=== PATIENT | male | born 1955 | race Caucasian/White ===

== ENCOUNTER 2024-10-02 08:47 | Observation (INO) | payer MEDICARE, SELFPAY ==
[2024-10-02] VITALS (10 sets, daily range): BP systolic 107–176; BP diastolic 57–103; PULSE 39–61; RESP 12–18; TEMP 36.4–37; O2SAT 95–98; BMI 25.0; BMI 25.7
--- OUTSIDE RECORDS SUMMARY | 2024-10-02 07:40 | XMS_ITS | Encounter Summary ---
Author Organization [facility] Address [address] [place] [address] Care Team Providers Care Credit Collections Manager Name Role Phone Sadiq Ribera DO Primary Care Provider [phone] Reason for Visit * Reason Comments Chest Pain (Angina) Encounter Details Date Type Department Care Team (Latest Contact Info) Description 10/02/2024 7:40 AM CDT Office Visit [address] [phone] Sadiq Ribera DO [address] [place] [phone] Precordial pain (Primary Dx); Mixed hyperlipidemia Social History Tobacco Use Types Packs/Day Years Used Date Smoking Tobacco: Never Smokeless Tobacco: Never Alcohol Use Standard Drinks/Week Comments Yes 1 (1 standard drink = 0.6 oz pur e alcohol) daily Sex and Gender Information Value Date Recorded Sex Assigned at Not on file 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 Gender Identity Not on file Sexual Orientation Not on file documented as of this encounter Last Filed Vital Signs Vital Sign Reading Time Taken Comments Blood Pressure 130/90 10/02/2024 7:48 AM CDT Pulse 69 10/02/2024 7:40 AM CDT Temperature 36.5 C (97.7 F) 10/02/2024 7:40 AM CDT Respiratory Rate 20 10/02/2024 7:40 AM CDT Oxygen Saturation 97% 10/02/2024 7:40 AM CDT Inhaled Oxygen Concentration - - Weight 78.9 kg (174 lb) 10/02/2024 7:40 AM CDT Height 170.2 cm (5' 7 ) 10/02/2024 7:40 AM CDT Body Mass Index 27.25 10/02/2024 7:40 AM CDT documented in this encounter Progress Notes * Sadiq Ribera DO - 10/02/2024 7:46 AM CDTAssociated Order(s): EKG 12-LEAD Pre-Procedure Diagnose(s): Precordial pain Post-Procedure Diagnose(s): Precordial pain Chief Complaint Patient presents with Chest Pain (Angina) SUBJECTIVE: History of Present Illness Onset of chest pain yesterday shortly after breakfast, persistent through the day yesterday and again this morning worsening after breakfast. Pain is described as substernal, denies being worse with activity. Denies history of GERD or indigestion. Denies recent sick contact. On arrival to the office he does have elevated blood pressure without history of hypertension Review of Systems Constitutional: Negative for chills, diaphoresis, fever and malaise/fatigue. HENT: Negative for congestion, sinus pain and sore throat. Eyes: Negative for blurred vision, pain and redness. Respiratory: Negative for cough, shortness of breath and wheezing. Cardiovascular: Positive for chest pain. Negative for palpitations and orthopnea. Gastrointestinal: Negative for abdominal pain, heartburn, nausea and vomiting. Genitourinary: Negative for dysuria. Musculoskeletal: Negative for joint pain and myalgias. Skin: Negative for itching and rash. Neurological: Negative for dizziness, weakness and headaches. Psychiatric/Behavioral: Negative for depression. The patient is not nervous/anxious and does not have insomnia. Wt Readings from Last 5 Encounters: 10/02/24 78.9 kg (174 lb) 06/04/24 78.9 kg (174 lb) 04/24/24 78.2 kg (172 lb 6.4 oz) 04/08/24 77.3 kg (170 lb 6.4 oz) 03/06/24 75.4 kg (166 lb 3.2 oz) Ht Readings from Last 1 Encounters: 10/02/24 5' 7 (1.702 m) BMI Readings from Last 5 Encounters: 10/02/24 27.25 kg/m?? 06/04/24 27.25 kg/m?? 04/24/24 27.00 kg/m?? 04/08/24 26.69 kg/m?? 03/06/24 26.03 kg/m?? Current Outpatient Medications on File Prior to Visit Medication Sig Dispense Refill adalimumab (Humira,CF, Pen) 40 mg/0.4 mL Pen Injector Kit Inject 0.4 mL by subcutaneous injection every 2 weeks. No current facility-administered medications on file prior to visit. PAST MEDICAL/SURGICAL HISTORY: Past Medical History: Diagnosis Date Anxiety Arthritis Back pain Cancer (CMS/HCC) Headache Hyperlipidemia IBS (irritable bowel syndrome) Prostate CA (CMS/HCC) Travel advice encounter 12/17/2020 Past Surgical History: Procedure Laterality Date HX APPENDECTOMY HX PROSTATECTOMY HX WRIST FUSION Right 1999 [place] COLONOSCOPY FLX DX W/COLLJ SPEC WHEN PFRMD N/A 08/02/2020 COLONOSCOPY performed by Chetan Gavin DO at [facility] NOEMI XR WRIST Right 1996 Social History Socioeconomic History Marital status: Tobacco Use Smoking status: Never Smokeless tobacco: Never Vaping Use Vaping status: Never Used Substance and Sexual Activity Alcohol use: Yes Alcohol/week: 1.0 standard drink of alcohol Types: 1 Shots of liquor per week Comment: daily Drug use: Never Sexual activity: Not Currently OBJECTIVE: PHYSICAL EXAM: BP (!) 194/100 (BP Location: Right arm, Patient Position (BP): Sitting, BP Cuff Size: Adult) Pulse 69 Temp 97.7 ??F (36.5 ??C) (Temporal) Resp 20 Ht 5' 7 (1.702 m) Wt 78.9 kg (174 lb) SpO2 97% BMI 27.25 kg/m?? Physical Exam Vitals and nursing note reviewed. Constitutional: General: He is not in acute distress. Appearance: Normal appearance. He is normal weight. He is not ill-appearing, toxic-appearing or diaphoretic. HENT: Head: Normocephalic and atraumatic. Right Ear: External ear normal. Left Ear: External ear normal. Nose: Nose normal. No rhinorrhea. Mouth/Throat: Mouth: Mucous membranes are moist. Eyes: General: No scleral icterus. Extraocular Movements: Extraocular movements intact. Conjunctiva/sclera: Conjunctivae normal. Cardiovascular: Rate and Rhythm: Normal rate and regular rhythm. Pulses: Normal pulses. Heart sounds: Normal heart sounds. No friction rub. No gallop. Pulmonary: Effort: Pulmonary effort is normal. Breath sounds: No stridor. No wheezing. Abdominal: General: Abdomen is flat. Musculoskeletal: General: No deformity or signs of injury. Normal range of motion. Cervical back: Normal range of motion and neck supple. Right lower leg: No edema. Left lower leg: No edema. Lymphadenopathy: Cervical: No cervical adenopathy. Skin: General: Skin is warm and dry. Capillary Refill: Capillary refill takes less than 2 seconds. Findings: No bruising or erythema. Neurological: General: No focal deficit present. Mental Status: He is alert and oriented to person, place, and time. Gait: Gait normal. Psychiatric: Attention and Perception: Attention normal. Mood and Affect: Mood is anxious. Behavior: Behavior normal. EKG 12-LEAD Date/Time: 10/02/2024 7:40 AM Performed by: Sadiq Ribera DO Authorized by: Sadiq Ribera DO Interpreted by ED physician Comparison: not compared with previous ECG Previous ECG: no previous ECG available Rhythm: sinus rhythm BPM: 63 QRS axis: normal Conduction: conduction normal ST Segments: ST segments normal T Waves: T waves normal Other findings: LVH Clinical impression: normal ECG RESULTS: Results ASSESSMENT/PLAN: ICD-10-CM ICD-9-CM 1. Precordial pain R07.2 786.51 EKG 12-LEAD 2. Mixed hyperlipidemia E78.2 272.2 Assessment & Plan Reviewed ongoing chest pain even with normal EKG is reason to proceed to the emergency room for further evaluation with troponin. Discussed that in the office we cannot draw a troponin in a timely fashion to provide direction of treatment. Discussed pathophysiology of ACS, he does have history of hy perlipidemia uncontrolled. Discussed that even if we corrected cholesterol tomorrow, the long-term benefit would not be for months to years. He is agreeable to transport for further evaluation. Discussed closest available facility with interventional cardiology is [facility] in [place], [place]. Patient did proceed by private vehicle, refused transport by EMS TOBACCO/NICOTINE COUNSELING He is not a tobacco/nicotine user. The author of this note, patient (or authorized practice representative), and all other persons present consent to the audio recording of this visit for charting documentation purposes. This note was automatically generated by a Wetive AI technology (eyefactive), reviewed, edited, and finalized by Sadiq Ribera DO. Sadiq Ribera DO Portions of this note were created using GoGoPin Dictation software. Attempts were made to correct any mistakes prior to signing this note. There is always a possibility that words were not transcribed correctly. This note is made as a medical record and medical terms have been used where appropriate. If you do not recognize a term or feel it is inaccurate please call the office to discuss or schedule a follow-up appointment. 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 Office Visit [facility] [address] [place] [phone] Sadiq Ribera DO [address] [place] [phone] documented as of this encounter Procedures Procedure Name Priority Date/Time Associated Diagnosis Comments [place] ECG ROUTINE ECG W/LEAST 12 LDS W/I&R Routine 10/02/2024 7:40 AM CDT Precordial pain documented in this encounter Results * [place] ECG ROUTINE ECG W/LEAST 12 LDS W/I&R (10/02/2024 7:40 AM CDT) Narrative [facility] - 10/02/2024 7:40 AM CDT Sadiq Ribera DO 10/02/2024 8:04 AM EKG 12-LEAD Date/Time: 10/02/2024 7:40 AM Performed by: Sadiq Ribera DO Authorized by: Sadiq Ribera DO Interpreted by ED physician Comparison: not compared with previous ECG Previous ECG: no previous ECG available Rhythm: sinus rhythm BPM: 63 QRS axis: normal Conduction: conduction normal ST Segments: ST segments normal T Waves: T waves normal Other findings: LVH Clinical impression: normal ECG Procedure Note Sadiq Ribera DO - 10/02/2024 7:46 AM CDT Chief Complaint Patient presents with Chest Pain (Angina) SUBJECTIVE: History of Present Illness Onset of chest pain yesterday shortly after breakfast, persistent throughthe day yesterday and again this morning worsening after breakfast. Painis described as substernal, denies being worse with activity. Denieshistory of GERD or indigestion. Denies recent sick contact. On arrival to the office he does have elevated blood pressure withouthistory of hypertension Review of Systems Constitutional: Negative for chills, diaphoresis, fever andmalaise/fatigue. HENT: Negative for congestion, sinus pain and sore throat. Eyes: Negative for blurred vision, pain and redness. Respiratory: Negative for cough, shortness of breath and wheezing. Cardiovascular: Positive for chest pain. Negative for palpitations andorthopnea. Gastrointestinal: Negative for abdominal pain, heartburn, nausea andvomiting. Genitourinary: Negative for dysuria. Musculoskeletal: Negative for joint pain and myalgias. Skin: Negative for itching and rash. Neurological: Negative for dizziness, weakness and headaches. Psychiatric/Behavioral: Negative for depression. The patient is notnervous/anxious and does not have insomnia. Wt Readings from Last 5 Encounters: 10/02/24 78.9 kg (174 lb) 06/04/24 78.9 kg (174 lb) 04/24/24 78.2 kg (172 lb 6.4 oz) 04/08/24 77.3 kg (170 lb 6.4 oz) 03/06/24 75.4 kg (166 lb 3.2 oz) Ht Readings from Last 1 Encounters: 10/02/24 5' 7 (1.702 m) BMI Readings from Last 5 Encounters: 10/02/24 27.25 kg/m 06/04/24 27.25 kg/m 04/24/24 27.00 kg/m 04/08/24 26.69 kg/m 03/06/24 26.03 kg/m Current Outpatient Medications on File Prior to Visit Medication Sig Dispense Refill adalimumab (Humira,CF, Pen) 40 mg/0.4 mL Pen Injector Kit Inject 0.4 mLby subcutaneous injection every 2 weeks. No current facility-administered medications on file prior to visit. PAST MEDICAL/SURGICAL HISTORY: Past Medical History: Diagnosis Date Anxiety Arthritis Back pain Cancer (CMS/HCC) Headache Hyperlipidemia IBS (irritable bowel syndrome) Prostate CA (CMS/HCC) Travel advice encounter 12/17/2020 Past Surgical History: Procedure Laterality Date HX APPENDECTOMY HX PROSTATECTOMY HX WRIST FUSION Right 1999 [place] COLONOSCOPY FLX DX W/COLLJ SPEC WHEN PFRMD N/A 08/02/2020 [facility] W[facility] Right 1996 Social History Socioeconomic History Marital status: Tobacco Use Smoking status: Never Smokeless tobacco: Never Vaping Use Vaping status: Never Used Substance and Sexual Activity Alcohol use: Yes Alcohol/week: 1.0 standard drink of alcohol Types: 1 Shots of liquor per week Comment: daily Drug use: Never Sexual activity: Not Currently OBJECTIVE: PHYSICAL EXAM: BP (!) 194/100 (BP Location: Right arm, Patient Position (BP): Sitting, BPCuff Size: Adult) Pulse 69 Temp 97.7 F (36.5 C) (Temporal) Resp20 Ht 5' 7 (1.702 m) Wt 78.9 kg (174 lb) SpO2 97% BMI 27.25kg/m Physical Exam Vitals and nursing note reviewed. Constitutional: General: He is not in acute distress. Appearance: Normal appearance. He is normal weight. He is notill-appearing, toxic-appearing or diaphoretic. HENT: Head: Normocephalic and atraumatic. Right Ear: External ear normal. Left Ear: External ear normal. Nose: Nose normal. No rhinorrhea. Mouth/Throat: Mouth: Mucous membranes are moist. Eyes: General: No scleral icterus. Extraocular Movements: Extraocular movements intact. Conjunctiva/sclera: Conjunctivae normal. Cardiovascular: Rate and Rhythm: Normal rate and regular rhythm. Pulses: Normal pulses. Heart sounds: Normal heart sounds. No friction rub. No gallop. Pulmonary: Effort: Pulmonary effort is normal. Breath sounds: No stridor. No wheezing. Abdominal: General: Abdomen is flat. Musculoskeletal: General: No deformity or signs of injury. Normal range of motion. Cervical back: Normal range of motion and neck supple. Right lower leg: No edema. Left lower leg: No edema. Lymphadenopathy: Cervical: No cervical adenopathy. Skin: General: Skin is warm and dry. Capillary Refill: Capillary refill takes less than 2 seconds. Findings: No bruising or erythema. Neurological: General: No focal deficit present. Mental Status: He is alert and oriented to person, place, and time. Gait: Gait normal. Psychiatric: Attention and Perception: Attention normal. Mood and Affect: Mood is anxious. Behavior: Behavior normal. EKG 12-LEAD Date/Time: 10/02/2024 7:40 AM Performed by: Sadiq Ribera DO Authorized by: Sadiq Ribera DO Interpreted by ED physician Comparison: not compared with previous ECG Previous ECG: no previous ECG available Rhythm: sinus rhythm BPM: 63 QRS axis: normal Conduction: conduction normal ST Segments: ST segments normal T Waves: T waves normal Other findings: LVH Clinical impression: normal ECG RESULTS: Results ASSESSMENT/PLAN: ICD-10-CM ICD-9-CM 1. Precordial pain R07.2 786.51 EKG 12-LEAD 2. Mixed hyperlipidemia E78.2 272.2 Assessment & Plan Reviewed ongoing chest pain even with normal EKG is reason to proceed tothe emergency room for further evaluation with troponin. Discussed thatin the office we cannot draw a troponin in a timely fashion to providedirection of treatment. Discussed pathophysiology of ACS, he does havehistory of hyperlipidemia uncontrolled. Discussed that even if wecorrected cholesterol tomorrow, the long-term benefit would not be formonths to years. He is agreeable to transport for further evaluation. Discussed closestavailable [facility] [place] [facility] [place] Patient did proceed by private vehicle, refusedtransport by EMS TOBACCO/NICOTINE COUNSELING He is not a tobacco/nicotine user. The author of this note, patient (or authorized practice representative), and allother persons present consent to the audio recording of this visit forcharting documentation purposes. This note was automatically generated by a Generative AI technology(eyefactive), reviewed, edited, and finalized by DO Zaid. Sadiq Ribera DO Portions of this note were created using GoGoPin Dictation software.Attempts were made to correct any mistakes prior to signing this note.There is always a possibility that words were not transcribed correctly.This note is made as a medical record and medical terms have been usedwhere appropriate. If you do not recognize a term or feel it isinaccurate please call the office to discuss or schedule a follow- upappointment. us Sadiq Ribera DO ECG ORDERABLES Final Result [facility]# [id number] [address] [address] documented in this encounter Visit Diagnoses Diagnosis Precordial pain- Primary Mixed hyperlipidemia documented in this encounter Care Teams Credit Collections Manager Relationship Specialty Start Date End Date Sadiq Ribera DO [address] [address] PCP - General Family Practice 03/05/24 documented as of this encounter
--- OUTSIDE RECORDS SUMMARY | 2024-10-02 07:40 | XMS_ITS | Encounter Summary ---
Author Organization [facility] Address [address] [place] [address] Care Team Providers Care Phlebotomy Lab Assistant Name Role Phone Sadiq Ribera DO Primary Care Provider [phone] Reason for Visit * Reason Comments Chest Pain (Angina) Encounter Details Date Type Department Care Team (Latest Contact Info) Description 10/02/2024 7:40 AM CDT Office Visit [address] [phone] Sadiq Ribera DO [address] [place] [phone] Precordial pain (Primary Dx); Mixed hyperlipidemia Social History Tobacco Use Types Packs/Day Years Used Date Smoking Tobacco: Never Smokeless Tobacco: Never Alcohol Use Standard Drinks/Week Comments Yes 1 (1 standard drink = 0.6 oz pur e alcohol) daily Sex and Gender Information Value Date Recorded Sex Assigned at Not on file 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 NOEMI XR WRIST Right 1996 Social [...] closest available facility with interventional cardiology is [facility] in [place], [place]. Patient did proceed by private vehicle, refused transport by EMS TOBACCO/NICOTINE COUNSELING He is not a tobacco/nicotine user. The author of this note, patient (or authorized sales utility representative), and all other persons present consent to the audio recording of this visit for charting documentation purposes. This note was automatically generated by a Zimplistictive AI technology ([employer]), reviewed, edited, and finalized by Sadiq Ribera DO. Sadiq Ribera DO Portions of this note were created using FeZo Dictation software. 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 WRIST Right 1996 Social History [...] Discussed closestavailable [place] [facility] [place]. Patient did proceed by private vehicle, refusedtransport by EMS TOBACCO/NICOTINE COUNSELING He is not a tobacco/nicotine user. The author of this note, patient (or authorized sales utility representative), and allother persons present consent to the audio recording of this visit forcharting documentation purposes. This note was automatically generated by a Generative AI technology([employer]el [employer]), reviewed, edited, and finalized by DO Zaid. Sadiq Ribera DO Portions of this note were created using FeZo Dictation software.Attempts were made to correct any [...] Sadiq Ribera DO ECG ORDERABLES Final Result [facility]# [id number] [address] [address] documented in this encounter Visit Diagnoses Diagnosis Precordial pain- Primary Mixed hyperlipidemia documented in this encounter Care Teams Phlebotomy Lab Assistant Relationship Specialty Start Date End Date Sadiq Ribera DO [address] [phone] PCP - General Family Practice 03/05/24 documented as of this encounter
--- NOTE | 2024-10-02 08:50 | XR_ITS ---
WS: [id number] Exam: XR chest 1V portable [id number] Date/Time of Exam: 10/02/2024 9:01 AM Reason For Exam: chest pain No priors. The lungs are clear and fully inflated. Normal cardiomediastinal silhouette. Bony structures are intact. No pleural effusion. XR/XR chest 1V portable [id number] IMPRESSION: 1. Negative chest.
--- NOTE | 2024-10-02 08:53 | ECG_ITS ---
[facility] 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 Measurements Intervals [place] Rate: 60 P: 37 LA: 149 QRS: -6 QRSD: 80 T: 25 QT: 382 QTc: 382 Interpretive Statements SINUS RHYTHM MINIMAL VOLTAGE CRITERIA FOR LVH, CONSIDER NORMAL VARIANT [MEETS CRITERIA IN ONE OF: R(aVL), S(V1), R(V5), R(V5/V6)+S(V1)] No previous ECG available for comparison Electronically Signed On 10-03-2024 15:23:28 CDT by Peggy Messer M.D. [email or web address]
--- OUTSIDE RECORDS SUMMARY | 2024-10-02 08:56 | XMS_ITS | Clinical Summary ---
Author Organization [facility] Address [address] [address] Care Team Providers Care Marine Steamfitter Name Role Phone Sadiq Ribera DO Primary Care Provider [phone] Allergies Active Allergy Reactions Criticality Noted Date Comments Alpha-Gal (Rewworkqv-Inrbz-8,3-Galactose) Unknown 03/06/2024 Medications adalimumab (Humira,CF, Pen) 40 mg/0.4 mL Pen Injector Kit Inject 0.4 mL by subcutaneous injection every 2 weeks. Active Active Problems Problem Noted Date Diagnosed Date Chronic bilateral low back pain with bilateral s ciatica 12/15/2021 Post-traumatic osteoarthritis of right foot 11/25 Localized osteoarthritis of left knee 12/15/2021 Mixed hyperlipidemia 06/03/2020 Migraine without aura and wi thout status migrainosus, not intractable 05/03/2020 Personal history of prostate cancer 04/19/2020 Chronic tension-type headache, not intractable 0 04/19/2020 History of prostate surgery 2019 01/23/2020 Personal history of colonic polyps 01/23/2020 Family history of colon canc er requiring screening colonoscopy 01/23/2020 Psoriasis vulgaris 09/30/2019 Resolved Problems Problem Noted Date Diagnosed Date Resolved Date Travel advice encounter 12/17/202004/26 Prostate CA 04/19/2020 Psoriatic arthritis 05/10/19 24 Encounters Date Type Department Care Team Description 10/02/2024 7:40 AM CDT Office Visit [facility] [address] [address] Barbe, Sadiq, DO Precordial pain (Primary Dx); Mixed hyperlipidemia 10/02/2024 Nurse Triage [place] [address] [address] [place] [address] Swathi Ames RN 09/23/2024 External Device Data ST[facility] ABSTRACTION Provider, Abstract 09/16/2024 External Device Data ST[place] ABSTRACTION Provider, Abstract 09/09/2024 External Device Data [place] ABSTRACTION Provider, Abstract 08/14/2024 External Device Data ST[place] ABSTRACTION Provider, Abstract 08/14/2024 External Device Data ST[place] ABSTRACTION Provider, Abstract 08/01/2024 9:40 AM CDT Procedure visit [facility] [address] [phone] 07/23/2024 Telephone [facility] [address] [address] Sadiq Ribera DO Question from Last 3 Months Immunizations Immunization Administration Dates Next Due Skin Test TB 05/21/2023,05/15/2022,05/02/2022 ,05/31/2020 Family History Medical History Relation Name Comments Heart Attack Father Rickey Heart Disease Father Rickey Apr 11 2009 High Cholesterol Father Rickey Apr [id number] Colon Cancer Mother Terri Apr 01 Breast Cancer Sister Relation Name Status Comments Father Rickey Alive Mother Terri Alive Sister Social History Tobacco Use Types Packs/Day Years Used Date Smoking Tobacco: Never Smokeless Tobacco: Never Tobacco Cessation:Counseling Given: No Alcohol Use Standard Drinks/Week Comments Yes 1 (1 standard drink = 0.6 oz pur e alcohol) daily Sex and Gender Information Value Date Recorded Sex Assigned at Not on file Legal Sex Male 9:37 PM UTILITY DIVISION PROJECT MANAGER Gender Identity Not on file Sexual Orientation Not on file Last Filed Vital Signs Vital Sign Reading [...] Mass Index 27.25 10/02/2024 7:40 AM CDT Plan of Treatment Upcoming Encounters Date Type Department Care Team (Late st Contact Info) Description 04/24/2025 10:00 AM UTILITY DIVISION PROJECT MANAGER Office Visit [facility] [address], [place] [address] Sadiq Ribera DO [address] [place] [phone] Health Maintenance Due Date Last Done Comments DTAP/TDAP/TD VACCINES (1 - Tdap) 08/09/1975 FIT-DNA Q 3 years 2001 FIT/FOBT Q 1 year 2001 Flex Sig/CT Colonography Q 5 years 2001 PNEUMOCOCCAL VACCINE 50+ YEA RS (1 of 1 - PCV) 2006 ZOSTER VACCINE (1 of 2) 2006 INFLUENZA VACCINE (#1) 2024 , 05/10/2023, 06/28/2021, Additional history exists COLORECTAL SCREENING 08/02/2025 08/02/2020, 08/02/2020, 02/09/2017 Colorectal Cancer Screening 08/02/2025 Pre-Diabetes and Diabetes Screening 04/08/2027 04/08/2024 RSV VACCINE (60+ or ) (1 - 1-dose 75+ series) 08/09/2031 Medicare [place] ([place]) Preventative Visit/Annual Wellness Visit Completed 06/04/2024, 04/24/2024 Procedures Procedure Name Priority Date/Time Associated Diagnosis Comments NV ECG ROUTINE ECG W/LEAST 12 LDS W/I&R Routine 10/02/2024 7:40 AM CDT Precordial pain HEMOGLOBIN A1C Routine 04/08/2024 9:27 AM UTILITY DIVISION PROJECT MANAGER Diabetes mellitus screening COLONOSCOPY REPORT 08/02/2020 3: 06 PM CDT from Last 3 Months or Most Recently Relevant to Health Maintenance Results * NV ECG ROUTINE ECG W/LEAST 12 LDS W/I&R (10/02/2024 7:40 AM CDT) Narrative [facility] - 10/02/2024 7:40 AM CDT Sadiq Ribera [...] Diagnosis Date Anxiety Arthritis Back pain Cancer ([facility]) Headache Hyperlipidemia IBS (irritable bowel syndrome) Prostate CA (CMS/HCC) Travel advice encounter 12/17/2020 Past Surgical History: Procedure Laterality Date HX APPENDECTOMY HX PROSTATECTOMY HX WRIST FUSION Right 1999 NV COLONOSCOPY FLX DX W/COLLJ SPEC WHEN PFRMD N/A 08/02/2020 COLONOSCOPY performed by Chetan Gavin DO at [facility] WRIST Right 1996 Social [...] Discussed closestavailable facility with interventional cardiology is [place], [place]. Patient did proceed by private vehicle, refusedtransport by EMS TOBACCO/NICOTINE COUNSELING He is not a tobacco/nicotine user. The author of this note, patient (or authorized field service representative), and allother persons present consent to the audio recording of this visit forcharting documentation purposes. This note was automatically generated by a Generative AI technology(Arcamed), reviewed, edited, and finalized by DO Zaid. Sadiq Ribera DO Portions of this note were created using [employer] Dictation software.Attempts were made to correct any mistakes prior to signing this note.There is always a possibility that words were not transcribed correctly.This note is made as a medical record and medical terms have been usedwhere appropriate. If you do not recognize a term or feel it isinaccurate please call the office to discuss or schedule a follow- upappointment. Sadiq Ribera DO ECG ORDERABLES Final Result [facility]# [id number] [address] [place] [address] * HEMOGLOBIN A1C (04/08/2024 9:27 AM UTILITY DIVISION PROJECT MANAGER) HEMOGLOBIN A1C 5.6 <5.7 % of total Hgb [facility] Comment: For the purpose of screening for the presence of diabetes: <5.7% Consistent with the absence of diabetes 5.7-6.4% Consistent with increased risk for diabetes (prediabetes) > or =6.5% Consistent with diabetes This assay result is consistent with a decreased risk of diabetes. Currently, no consensus exists regarding use of hemoglobin A1c for diagnosis of diabetes in children. According to [place] Diabetes Association (ADA) guidelines, hemoglobin A1c <7.0% represents optimal control in non- diabetic patients. Different metrics may apply to specific patient populations. Standards of Medical Care in Diabetes(ADA). ESTIMATED AVERAGE GLUCOSE (MG/DL) 114 mg/dL [facility] ESTIMATED AVERAGE GLUCOSE (MMOL/L) 6.3 mmol/L [facility] Comment: FASTING:YES FASTING: YES Test Performed at: [facility] [address] [address] Cyrus Yadav MD Blood 04/08/2024 9:27 AM UTILITY DIVISION PROJECT MANAGER 04/08/2024 9:28 AM UTILITY DIVISION PROJECT MANAGER us Jina Iftikhar Smith OPTICS TECHNICAL OFFICER CHEMISTRY ORDERABLES Final Re sult [facility] [phone] [facility] [[email or web address]] [facility] [address] [phone] * COLONOSCOPY REPORT (08/02/2020 3:06 PM CDT) Narrative Procedure Note Chetan Gavin DO - 08/02/2020 3:06 PM CDT Procedures signed by Chetan Gavin DO at 08/02/2020 3:06 PM Author: Chetan Gavin DO Service: -- Author Type: Physician Filed: 08/02/2020 3:06 PM Date of Service: 08/02/2020 3:06 PM Status:Signed And Drying Supervisor Cooking Casing: Chetan Gavin DO (Physician) Procedure Orders 1. COLONOSCOPY REPORT [[id number]] ordered by Chetan Gavin DOat 08/02/[address] [place] [address] GI Patient Name: Rickey Cohen Procedure Date: 08/02/2020 Date of : 1955 Admit Type: Outpatient Age: 64 Attending MD: Chetan Gavin MD Procedure: Colonoscopy Indications: Family history of colon cancer in a first-degree relative Providers: Chetan Gavin MD Referring MD: Medicines: Fentanyl 100 micrograms IV, Midazolam 5 mg IV, Atropine 0.5 mg IV Complications: Patient became bradycardic in the 30's patient was asymptomatic. Atropine given with improvement to the 60's. Procedure: After I obtained informed consent, the scope was passed under direct vision. Throughout the procedure, the patient's blood pressure, pulse, and oxygen saturations were monitored continuously. The Colonoscope was introduced through the anus and advanced to the cecum, identified by appendiceal orifice and ileocecal valve. The colonoscopy was performed without difficulty. The patient tolerated the procedure well. The quality of the bowel preparation was good. Estimated Blood Loss: Estimated blood loss: none. Findings: A few small and large-mouthed diverticula were found in the sigmoid colon. Moderate Sedation: Moderate (conscious) sedation was administered by the endoscopy nurse and supervised by the endoscopist. The following parameters were monitored: oxygen saturation, heart rate, blood pressure, respiratory rate, EKG, adequacy of pulmonary ventilation, and response to care. Total physician intraservice time was 15 minutes. Impression: - Diverticulosis in the sigmoid colon. - No specimens collected. Recommendation: - Patient has a contact number available for emergencies. The signs and symptoms of potential delayed complications were discussed with the patient. Return to normal activities tomorrow. Written discharge instructions were provided to the patient. - Resume previous diet. - Continue present medications. - Repeat colonoscopy in 5 years for surveillance. Chetan Gavin MD 08/02/2020 3:06:19 PM Number of Addenda: 0 Note Initiated On: 08/02/2020 2:40 PM Scope Withdrawal Time 0 hours 9 minutes 12 seconds Scope In: 2:51:11 PM Scope Out: 3:03:01 PM [address] [place], [place] Chetan Gavin DO GI PROCEDURE ORDERABLES Edited Result - Final from Last 3 Months or Most Recently Relevant to Health Maintenance Insurance [employer] [facility] * Guarantor: RICKEY COHEN Account Type Relation to Patient Date of Phone Billing Address Personal/Family [address] [address] RX [employer] Medicare Part D Care Teams Marine Steamfitter Relationship Specialty Start Date End Date Sadiq Ribera DO [address] [place] [address] PCP - General Family Practice 03/05/24
--- OUTSIDE RECORDS SUMMARY | 2024-10-02 08:56 | XMS_ITS | Clinical Summary ---
Author Organization [facility] Address [address] [place] [phone] Care Team Providers Care Gis Consultant Name Role Phone Sadiq Ribera DO Primary Care Provider [phone] Allergies No known active allergies Medications adalimumab (HUMIRA) 40 mg/0.4 mL Pen Injector Kit 0.4 mL every 2 weeks. Active Ubrelvy 50 mg tablet 05/03/2020 Active imipramine HCl (TOFRANIL) 10 mg tablet Take 1 Tablet (10 mg) by mouth daily at bedtime. 30 Tablet 6 07/27/2020 Active Active Problems Problem Noted Date Diagnosed Date Mixed hyperlipidemia 06/03/2020 Migraine without aura and wi thout status migrainosus, not intractable 05/03/2020 Personal history of prostate cancer 04/19/2020 Chronic tension-type headache, not intractable 0 04/19/2020 History of prostate surgery 2019 01/23/2020 Family history of colon canc er requiring screening colonoscopy 01/23/2020 Personal history of colonic polyps 01/23/2020 Psoriasis vulgaris 09/30/2019 Psoriatic arthritis Resolved Problems Problem Noted Date Diagnosed Date Resolved Date Prostate CA 04/19/2020 Immunizations Immunization Administration Dates Next Due Skin Test TB 05/31/2020 Social History Tobacco Use Types Packs/Day Years Used Date Smoking Tobacco: Never Smokeless Tobacco: Never Tobacco Cessation:Counseling Given: No Alcohol Use Standard Drinks/Week Comments Yes 0 (1 standard drink = 0.6 oz pur e alcohol) Sex and Gender Information Value Date Recorded Sex Assigned at Not on file Legal Sex Male 1:19 PM CDT Gender Identity Not on file Sexual Orientation Not on file Last Filed Vital Signs Vital Sign Reading Time Taken Comments Blood Pressure 120/78 08/10/2020 9:35 AM CDT Pulse 80 08/10/2020 9:35 AM CDT Temperature 36.9 C (98.5 F) 08/10/2020 9:35 AM CDT Respiratory Rate 18 08/10/2020 9:35 AM CDT Oxygen Saturation 97% 08/10/2020 9:35 AM CDT Room Air Inhaled Oxygen Concentration - - Weight 75.4 kg (166 lb 3.2 oz) 08/10/2020 9:35 A M CDT Height 170.2 cm (5' 7 ) 08/10/2020 9:35 AM CDT Body Mass Index 26.03 08/10/2020 9:35 AM CDT Plan of Treatment Health Maintenance Due Date Last Done Comments Pre-Diabetes and Diabetes Screening 1955 DTAP/TDAP/TD VACCINES (1 - Tdap) 08/09/1975 FIT-DNA Q 3 years 2001 FIT/FOBT Q 1 year 2001 Flex Sig/CT Colonography Q 5 years 2001 PNEUMOCOCCAL VACCINE 50+ YEA RS (1 of 1 - PCV) 2006 ZOSTER VACCINE (1 of 2) 2006 Medicare [place]age ([place]) Prev entative Visit/Annual Wellness Visit 03/26/2024 INFLUENZA VACCINE (#1) 2024 01/23/2020 COLORECTAL SCREENING 08/02/2025 08/02/2020, 08/03/19 21 Colorectal Cancer Screening 08/02/2025 RSV VACCINE (60+ or ) (1 - 1-dose 75+ series) 08/09/2031 Procedures Procedure Name Priority Date/Time Associated Diagnosis Comments COLONOSCOPY REPORT 08/02/2020 3: 07 PM CDT from Last 3 Months or Most Recently Relevant to Health Maintenance Results * COLONOSCOPY REPORT (08/02/2020 3:07 PM CDT) Narrative Procedure Note Chetan Gavin DO - 08/02/2020 3:06 PM CDT [facility] GI Patient Name: Rickey Cohen Procedure Date: [...] Scope Out: 3:03:01 PM [address] [place], [place] us Chetan Gavin DO GI PROCEDURE ORDERABLES Final Result from Last 3 Months or Most Recently Relevant to Health Maintenance Insurance [email or web address] [id number] HMO RX [employer] [facility] Medicare Part D Advance Directives For more information, please contact: [phone] * Full Code (Latest Code Status on File) Date Activated Date Inactivated Comments 08/02/2020 2:19 PM 08/02/2020 5:39 PM Care Teams Gis Consultant Relationship Specialty Start Date End Date Sadiq Ribera DO [address] [place] [address] PCP - General Family Practice 01/23/20
--- OUTSIDE RECORDS SUMMARY | 2024-10-02 08:56 | XMS_ITS | Encounter Summary ---
Author Organization [facility] Address [address] [place] [address] Care Team Providers Care Director Of Student Financial Aid Name Role Phone Sadiq Ribera DO Primary Care Provider [phone] Encounter Details Date Type Department Care Team (Latest Contact Info) Description 04/10/2024 Results Follow-Up [facility] [address] [address] Jina Smith FNP [address] [place] [phone] PSA, CBC WITH DIFFERENTIAL, COMPREHENSIVE METABOLIC PANEL, Additional followed-up results: 3 Social History Tobacco Use Types Packs/Day Years Used Date Smoking Tobacco: Never Smokeless Tobacco: Never Alcohol Use Standard Drinks/Week Comments Yes 1 (1 standard drink = 0.6 oz pur e alcohol) daily Sex and Gender Information Value Date Recorded Sex Assigned at Not on file Legal Sex Male 9:37 PM STOCK MOVER Gender Identity Not on file Sexual Orientation Not on file documented as of this encounter Plan of Treatment Upcoming Encounters Date Type Department Care Team (Late st Contact Info) Description 04/24/2025 10:00 AM STOCK MOVER Office Visit [facility] [address] [address] Sadiq Ribera DO [address] [place] [phone] documented as of this encounter Visit Diagnoses Not on filedocumented in this encounter Care Teams Director Of Student Financial Aid Relationship Specialty Start Date End Date Sadiq Ribera DO [address] [place] [address] PCP - General Family Practice 03/05/24 documented as of this encounter
--- OUTSIDE RECORDS SUMMARY | 2024-10-02 08:56 | XMS_ITS ---
Author Organization [facility] Address [address] [place] [address] Care Team Providers Care Charge Entry Clerk Name Role Phone TrishaSadiq salgado Primary Care Provider [phone] Active Problems Problem Noted Date Diagnosed Date [...] requiring screening colonoscopy 01/23/2020 Psoriasis vulgaris 09/30/2019 Current Treatment and Therapy Plans No current plan information found. Past Treatment and Therapy Plans No past plan information found. Lifetime Dose Tracking * Chemical Lifetime Dose Automatic Entry Manual Entr y Effective Dose 7.2 mSv 7.2 mSv 0 mSv Total DLP 460 DLP 460 DLP 0 DLP CTDIvol Max 11.1 mGy 11.1 mGy 0 mGy CTDIvol Min 11.1 mGy 11.1 mGy 0 mGy Resolved Problems Problem Noted Date Diagnosed Date Resolved Date Travel advice encounter 12/17/202004/26 Prostate CA 04/19/2020 Psoriatic arthritis 05/10/19
--- OUTSIDE RECORDS SUMMARY | 2024-10-02 08:56 | XMS_ITS | Encounter Summary ---
Author Organization [facility] Address [address] [place] [address] Care Team Providers Care Telephone Station Installer Name Role Phone Sadiq Ribera DO Primary Care Provider [phone] Reason for Visit * Reason Onset Date Comments Nikki Substance Abuse Services Director 10/02/2024 Chest Pain 10/02/2024 Encounter Details Date Type Department Care Team (Late st Contact Info) Description 10/02/2024 Nurse Triage [facility] [address] [facility] [place] [address] Swathi Ames RN Social History Tobacco Use Types Packs/Day Years Used Date Smoking Tobacco: Never Smokeless Tobacco: Never Alcohol Use Standard Drinks/Week Comments Yes 1 (1 standard drink = 0.6 oz pur e alcohol) daily Sex and Gender Information Value Date Recorded Sex Assigned at Not on file Legal Sex Male 9:37 PM ROOTER OPERATOR Gender Identity Not on file Sexual Orientation Not on file documented as of this encounter Miscellaneous Notes * Telephone Encounter - Swathi Ames RN - 10/02/2024 7:31 AM CDT [facility] 365 DOCUMENTATION Service Line: [facility] 365 at 7:31 AM Chief Complaint: Chest Pain PCP: Sadiq Ribera DO Patient Statement/HPI: Patient calling from outside clinic with new onset left sided chest pain and blood pressure 190/120s. Plan: Recommend patient call 911 for EMS transport to nearest emergency department. Note routed to primary care office pool. Visit was completed by phone unless otherwise noted with video/screen capture within the note. Swathi Ames RN [facility] 365 Reason for Disposition [1] Chest pain lasts > 5 minutes AND [2] age > 44 Protocols used: Chest Pain-A-AH documented in this encounter Plan of Treatment Upcoming Encounters Date Type Department Care Team (Late st Contact Info) Description 04/24/2025 10:00 AM ROOTER OPERATOR Office Visit [facility] [address] [place] [phone] Sadiq Ribera DO [address] [place] [phone] documented as of this encounter Visit Diagnoses Not on filedocumented in this encounter Care Teams Telephone Station Installer Relationship Specialty Start Date End Date Sadiq Ribera DO [address] [place] [phone] PCP - General Family Practice 03/05/24 documented as of this encounter
[2024-10-02 09:06] LABS: Hematocrit 43.1 % (37-53); Hemoglobin 15.00 g/dL (11.27-16.99); Mean Corpuscular HGB Conc 34.8 g/dL (30-55); Mean Corpuscular Hemoglobin 32.2 pg (27-33); Mean Corpuscular Volume 92.5 fl (82-101); Nucleated Red Blood Cells % 0 %; Platelet Count 215 10^3/cmm (157-399); Red Blood Count 4.66 10^6/uL (3.85-5.65); White Blood Count 6.13 10^3/uL (3.29-11.43)
--- NOTE | 2024-10-02 09:14 | ED_ITS ---
HPI - Chest Pain 2 General: Chief Complaint: Chest Pain Stated Complaint: cp, abnormal ekg, sob Time Seen by Provider: 10/02/24 08:50 History of Present Illness: 69-year-old male presents emergency room complaining of episodes of chest pain that began while at rest shortly after he been eating this morning. The episode lasted for about 20 minutes did not radiate described as a pressure no diaphoresis he was somewhat nauseated. Checked his blood pressure during this time was elevated. It is improved on arrival here but still somewhat elevated. No known history of coronary artery disease or arrhythmias. Associated symptoms: Deny abdominal pain, dyspnea or fever(s) Related Data Home Medications ?Medication ?Instructions ?Recorded ?Confirmed adalimumab 40 mg/0.8 mL 40 mg SUBCUT Q14D 10/02/24 0 10/02/24 subcutaneous syringe kit (Humira) ascorbic acid 30 mg-collagen, 1 tab PO DAILY 10/02/24 10/02/24 hydrolyzed 833.3 mg tablet (Collagen Skin Renewal) ibuprofen 200 mg tablet (Advil) 200 mg PO Q6H PRN Feve r Or Pain 10/02/24 10/02/24 Allergies Allergy/AdvReac Type Severity Reaction Status Date / Time Latex, Natural Rubber Allergy Unknown Verified 10/02/24 08:56 Review of Systems 2 Const: Denies: fever(s) or chills Card: Reports: chest pain Resp: Denies: dyspnea GI: Denies: abdominal pain : Denies: dysuria, urinary frequency or urinary urgency Musc: Denies: neck pain or back pain Skin/Breast: Denies: rash Physical Exam 2 Const: GENERAL APPEARANCE: cooperative ORIENTATION/CONSCIOUSNESS: Yes awake, Yes oriented to person, Yes oriented to place and Yes oriented to time HENMT: COMMON NORMALS: normocephalic, atraumatic and hearing grossly normal bilaterally HEAD & SCALP: normocephalic and atraumatic Resp: COMMON NORMALS: normal respiratory effort, No retractions, No use of accessory muscles and clear to auscultation bilaterally AUSCULTATION: clear to auscultation bilaterally Cardio: COMMON NORMALS: regular rate, regular rhythm and No murmurs present (Cardio) RATE: regular rate RHYTHM: regular rhythm GI: COMMON NORMALS: Soft to palpation and No hepatosplenomegaly present A USCULTATION: Yes normoactive bowel sounds PALPATION: Yes Soft to palpation, No Tenderness to palpation present (GI), No Guarding due to palpation present (GI) and Yes No hepatosplenomegaly present Extremity: COMMON NORMALS: normal to inspection, capillary refill normal, no clubbing, cyanosis or edema, no calf tenderness and no pedal edema Neuro: SENSORIUM/ORIENTATION: Yes oriented to person, Yes oriented to place and Yes oriented to time Skin: COMMON NORMALS: no rashes or lesions noted GENERAL SKIN EXAM: no rashes or lesions noted Course 2 Vital Signs: Vital signs: Vital Signs Temperature 98.6 F 10/02/24 08:51 Pulse Rate 54 L 10/02/24 11:20 Respiratory Rate 17 10/02/24 11:20 Blood Pressure 125/77 10/02/24 11:20 Pulse Oximetry 98 10/02/24 11:20 Oxygen Delivery Me thod Room Air 10/02/24 09:50 MDM - Chest Pain Medical Decision Making EKG does not show any acute changes positive cardiac enzymes with a plus delta of 46. Patient is pain-free at this time is actually somewhat bradycardic vital signs otherwise stable. We already had given him half of angio Nitropaste will start him on heparin weight-based protocol he was also given 300 Plavix for request of cardiology. Remains pain-free. 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 Lab Data I reviewed the patient's lab results. 10/02/24 08:59 10/02/24 08:59 Radiology Impressions Chest X-Ray 10/02/24 08:50 IMPRESSION: 1. Negative chest. Laboratory Results WBC 6.13 10^3/uL (3.29-11.43) 10/02/24 08:59 RBC 4.66 10^6/uL (3.85-5.65) 10/02/24 08:59 Hgb 15.00 g/dL (11.27-16.99) 10/02/24 08:59 Hct 43.1 % (37-53) 10/02/24 08:59 MCV 92.5 fl (82-101) 10/02/24 08:59 MCH 32.2 pg (27-33) 10/02/24 08:59 MCHC 34.8 g/dL (30-55) 10/02/24 08:59 RDW 12.7 % (12.1-15.1) 10/02/24 08:59 Plt Count 215 10^3/cmm (157-399) 10/02/24 08:59 MPV 8.6 fL (7.4-10.4) 10/02/24 08:59 Neut % (Auto) 41.2 % 10/02/24 08:59 Lymph % (Auto) 45.8 % 10/02/24 08:59 [place] % (Auto) 9.5 % 10/02/24 08:59 Eos % (Auto) 2.8 % 10/02/24 08:59 Baso % (Auto) 0.5 % 10/02/24 08:59 Neut # (Auto) 2.53 10^3/uL (1.8-7.7) 10/02/24 08:59 Lymph # (Auto) 2.8 10^3/uL (0.8-4.8) 10/02/24 08:59 [place] # (Auto) 0.6 10^3/uL (0.2-0.9) 10/02/24 08:59 Eos # (Auto) 0.2 10^3/uL (0.0-0.8) 10/02/24 08:59 Baso # (Auto) 0.0 10^3/uL (0.0-0.1) 10/02/24 08:59 Nucleated RBC % (auto) 0 % 10/02/24 08:59 Nucleated RBCs # 0.0 /100WBC 10/02/24 08:59 Sodium 140 mmol/L (136-145) 10/02/24 08:59 Potassium 4.6 mmol/L (3.5-5.1) 10/02/24 08:59 Chloride 105 mmol/L (98-107) 10/02/24 08:59 Carbon Dioxide 24 mmol/L (22-29) 10/02/24 08:59 Anion Gap 15.6 (5-19) 10/02/24 08:59 BUN 18 mg/dL (8-23) 10/02/24 08:59 Creatinine 0.7 mg/dL (0.7-1.2) 10/02/24 08:59 GFR Calculation 112.1 mL/min (90-130) 10/02/24 08:59 Glucose 100 mg/dL (65-115) 10/02/24 08:59 Calculated Osmolality 292 mOsm/kg (285-295) 10/02/24 08:59 Calcium 9.4 mg/dL (8.5-10.5) 10/02/24 08:59 Total Bilirubin 0.4 mg/dL (0.15-1.2) 10/02/24 08:59 AST 29 U/L (0-40) 10/02/24 08:59 ALT 29 U/L (0-41) 10/02/24 08:59 Alkaline Phosphatase 73 U/L (40-130) 10/02/24 08:59 Troponin T Baseline 76 ng/L (0-15) H 10/02/24 08:59 Troponin T 120 Minute 116.4 ng/L (0-15) H 10/02/24 10:25 Delta Troponin T 40.4 ABS# (0-10) H* 10/02/24 10:25 Total Protein 7.6 g/dL (6.6-8.7) 10/02/24 08:59 Albumin 4.4 g/dL (3.5-5.2) 10/02/24 08:59 Globulin 3.2 g/dL (1.3-4.6) 10/02/24 08:59 All radiology interpretation(s) finalized by discharge EKG Data EKG 1: Interpretation: EKG October 02, 2024 8:53 AM sinus rhythm borderline voltage criteria for LVH. Rate of 60 IN interval 149 QTc 382 there is no acute ST changes noted no ST depression or elevation. No previous EKGs for comparison EKG 2: Interpretation: EKG 10/02/2024 10:37 AM sinus bradycardia rate of 53 IN interval 146 QTc [address] changes noted. No ST elevation no depression Discharge Plan Discharge Patient Disposition: Admitted As Inpatient Admit Provider: Tejas Castillo Clinical Impression: Non-ST elevation [place] (NSTEMI) Condition: Stable Coding Level of Care Code ED Ore Puncher for Angel Sifuentes
[2024-10-02 09:26] LABS: Troponin(5th) Baseline 76 ng/L (0-15)
[2024-10-02 09:28] LABS: Alanine Aminotransferase 29 U/L (0-41); Albumin Level 4.4 g/dL (3.5-5.2); Alkaline Phosphatase 73 U/L (40-130); Anion Gap 15.6 (5-19); Aspartate Amino Transferase 29 U/L (0-40); Blood Urea Nitrogen 18 mg/dL (8-23); Calcium 9.4 mg/dL (8.5-10.5); Carbon Dioxide 24 mmol/L (22-29); Chloride 105 mmol/L (98-107); Creatinine Clr Calc Pharmacy 85.8625; Globulin 3.2 g/dL (1.3-4.6); Glucose 100 mg/dL (65-115); Osmolality Calculated 292 mOsm/kg (285-295); Potassium 4.6 mmol/L (3.5-5.1); Sodium 140 mmol/L (136-145); Total Protein 7.6 g/dL (6.6-8.7)
[2024-10-02] MEDS: nitroglycerin 1 gm/inch oint Pkt 0.5 INCH TOPICAL (09:48)
--- NOTE | 2024-10-02 10:37 | ECG_ITS ---
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 Measurements Intervals [place] Rate: 53 P: 20 LA: 146 QRS: -12 QRSD: 82 T: 3 QT: 414 QTc: 390 Interpretive Statements SINUS BRADYCARDIA MODERATE VOLTAGE CRITERIA FOR LVH, CONSIDER NORMAL VARIANT [MEETS CRITERIA IN ONE OF: R(aVL), S(V1), R(V5), R(V5/V6)+S(V1)] Compared to ECG 10/02/2024 09:45:31 No significant changes Electronically Signed On 10-03-2024 15:33:13 CDT by Peggy Messer M.D. [email or web address]
--- NOTE | 2024-10-02 10:50 | ECG_ITS ---
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 Measurements Intervals [place] Rate: 53 P: 47 VA: 151 QRS: 1 QRSD: 81 T: 25 QT: 406 QTc: 383 Interpretive Statements SINUS BRADYCARDIA Compared to ECG 10/02/2024 08:53:49 Sinus rhythm no longer present Electronically Signed On 10-03-2024 15:33:19 CDT by Peggy Messer M.D. [id number] [id number]
[2024-10-02 11:01] LABS: Troponin 5 2HR 116.4 ng/L (0-15); Troponin 5 2HR Delta 40.4 ABS# (0-10)
--- NOTE | 2024-10-02 11:59 | P.HP_ITS ---
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 He checked his blood pressure and it was elevated as high as 200s over 90s. In the emergency room initial blood pressure elevated 176/103. He does not have history of diagnosed hypertension, he had a blood pressure cuff leftover from his father. In ED his heart rates are in the high 40s to low 50s, initial troponin 76 but with positive delta of 216.4 at 2 hours. EKG with suggestion of LVH, T wave inversion in 3. Chest x-ray unremarkable. He denies history of GERD. Reports still ongoing mild unease/discomfort in his chest with Nitropatch on. Blood pressures have started trending down in the ED. Review of Systems 2 Const: Denies: fever(s), chills, body aches or malaise ENMT: Denies: throat pain Card: Reports: chest pain; Denies: edema, pre-syncope or dyspnea on exertion Resp: Denies: dyspnea, productive cough, change in phlegm color or hemoptysis GI: Denies: abdominal pain, nausea, vomiting, diarrhea, constipation, hematochezia or melena : Denies: flank pain, difficulty urinating, urinary frequency or hematuria Musc: Denies: back pain, joint swelling or joint redness Skin/Breast: Denies: rash or new lesions Neuro: Denies: headache(s) or confusion Medications/Allergies Home Medications ?Medication ?Instructions ?Recorded ?Confirmed ?Last Taken ?Type adalimumab 40 mg/0.8 mL 40 mg SUBCUT Q14D 10/02/24 0 10/02/24 Unknown History subcutaneous syringe kit (Humira) ascorbic acid 30 mg-collagen, 1 tab PO DAILY 10/02/24 10/02/24 10/01/24 History hydrolyzed 833.3 mg tablet (Collagen Skin Renewal) ibuprofen 200 mg tablet (Advil) 200 mg PO Q6H PRN Feve r Or Pain 10/02/24 10/02/24 Unknown History Allergies Allergy/AdvReac Type Severity Reaction Status Date / Time Latex, Natural Rubber Allergy Unknown Verified 10/02/24 08:56 PFSH Acute 2 PFSH: Medical History Appendicitis Psoriatic arthritis Psoriasis Surgical History Hx of appendectomy Social History Smoking and tobacco/nicotine status: never used tobacco/nicotine Alcohol intake: current Alcohol intake frequency: 3 or more drinks per day Alcohol type: beer and hard liquor Marital status: Vitals/I&O/Wt Last Vital Signs Temp 98.6 F 10/02/24 08:51 Pulse 54 L 10/02/24 11:20 Resp 17 10/02/24 11:20 BP 125/77 10/02/24 11:20 Pulse Ox 98 10/02/24 11:20 O2 Del Method Room Air 10/02/24 09:50 Weight last 48 hrs Weight 72.575 kg Physical Exam 2 Const: COMMON NORMALS: patient oriented x3 and alert GENERAL APPEARANCE: c ooperative ORIENTATION/CONSCIOUSNESS: Yes awake HENMT: COMMON NORMALS: oropharynx normal Neck/C-Spine: COMMON NORMALS: no JVD Resp: COMMON NORMALS: normal respiratory effort and clear to auscultation bilaterally AUSCULTATION: clear to auscultation bilaterally Cardio: COMMON NORMALS: no JVD, regular rhythm, S1 normal heart sound present, S2 normal heart sound present and No murmurs present (Cardio) RHYTHM: regular rhythm HEART SOUNDS: S1 normal heart sound present and S2 normal heart sound present GI: COMMON NORMALS: Normal to inspection, nondistended, normoactive bowel sounds present, Soft to palpation and non-tender PALPATION: Yes Soft to palpation Extremity: COMMON NORMALS: no joint enlargement and no pedal edema Neuro: COMMON NORMALS: patient oriented x3 and moves all extremities S ENSORIUM/ORIENTATION: Yes alert Skin: COMMON NORMALS: no rashes or lesions noted GENERAL SKIN EXAM: no rashes or lesions noted Data 10/02/24 08:59 10/02/24 08:59 A&P Assessment and plan 1. Non-ST elevation [place] (NSTEMI): Episode of chest pressure and discomfort this morning lasting 10 to 25 minutes. After Nitropaste mostly resolved, but some residual discomfort is still there. Reviewed vitals, CBC, CMP, troponin, EKG, on my interpretation with likely LVH, also with nonspecific T wave inversion in lead III, pending official read. Reviewed chest x-ray, ED provider note, discussed with ED provider. Cardiology was consulted. Discussed with him NSTEMI, possible x 1 versus type II with noted elevated blood pressure at home and on presentation. Without known history of hypertension. Discussed with him with benefit from long-term monitoring and optimization. Complete troponin EKG series: Telemetry with risk of arrhythmia. Discussed with family concern for possible active myocardial infarction for which she will need additional assessment management. Requesting additional assessment by echocardiogram. Discussed with him also cardiology consultation and likely may consider further risk stratification possibly with coronary angiogram. His risk factors include it appears undiagnosed hypertension, in addition to psoriasis with psoriatic arthritis. Some family history of heart disease in his father although it was in his late age. Continue aspirin, Plavix, on heparin drip currently, monitor for risk of bleeding, monitor PTTs, blood counts. Nitroglycerin paste currently in place, morphine as needed for severe breakthrough pain. 2. Elevated blood pressure reading: Blood pressure elevated at home 200s over 90s, blood pressure emergency department 176/103. Without known history of hypertension. Has a blood pressure cuff left after his late father. Reassess blood pressure, assess for possible undiagnosed hypertension. 3. Bradycardia: Heart rates in the high 40s to low 50s. Does not appear to be symptomatic at this time at least. Not a candidate for beta-neena. Monitor on telemetry. Check TSH. Assess echocardiogram. Plan: Psoriasis with psoriatic arthritis: On Humira. Discussed with him psoriasis increasing risk of cardiovascular disease. He occasionally takes ibuprofen, discussed risk of gastritis, PUD, as well as elevated blood pressure and risk of cardiovascular events increased by NSAIDs. Discussed safe alternatives. PDMP PDMP Reviewed: Not Reviewed Attestations 2 Medical Necessity Statement*: Place in observation for additional assessment and management of NSTEMI, optimization of possible undiagnosed hypertension. and High MDM includes amount and/or complexity of data reviewed/ordered [ previous or external records, resulted lab(s)/test(s), ordered lab(s)/test(s) and other healthcare professional discussion] and described risk of complication, morbidity or mortality of management as documented Diagnoses Non-ST elevation [place] (NSTEMI) I21.4 Elevated blood pressure reading R03.0 Bradycardia R00.1
--- NOTE | 2024-10-02 12:19 | USCV_ITS ---
Dl Cohen Age: 69 Gender: M : 1955 Exam Date: 10/02/2024 16:32 Ordering Phys: Tejas Castillo MD Technologist: JOSELITO [place] [facility] [place] BP: 107 / 57 HR: 40 Rhythm: Sinus Technical Quality: Adequate MEASUREMENTS (Male / Female) Normal Values 2D ECHO LV Diastolic Diameter PLAX 4.8 cm 4.2 - 5.9 / 3.9 - 5.3 cm IVS Diastolic Thickness 1.1 cm 0.6 - 1.0 / 0.6 - 0.9 cm IVS Systolic Thickness 2.0 cm LVPW Diastolic Thickness 1.1 cm 0.6 - 1.0 / 0.6 - 0.9 cm LVPW Systolic Thickness 1.7 cm LVOT Diameter 2.0 cm LV Ejection Fraction 2D Teich 64.8 % LV Ejection Fraction MOD 4C 65.4 % LV Ejection Fraction MOD 2C 52.8 % LV Ejection Fraction 2C AL 57.7 % LA Diameter 4.2 cm RA Systolic Volume 4C AL 30.2 ml RA Systolic Volume 4C MOD 30.2 ml LA Sys Volume AL 48.6 cm cubed LA Sys Volume Index AL 25.7 cm cubed/m squared Aorta at Sinotubular Diameter 2.6 cm IVC Diameter 2.3 cm M-MODE LA Ao Ratio MM 1.7 AV Cusp Separation MM 1.3 cm DOPPLER AV Peak Velocity 124.0 cm/s LVOT Peak Velocity 112.0 cm/s AV Area Cont Eq vti 3.7 cm squared AV Area Cont Eq pk 2.9 cm squared MV Peak Velocity 85.0 cm/s MV Area PHT 6.5 cm squared Mitral E to A Ratio 1.1 TR Peak Velocity 199.0 cm/s TR Peak Gradient 15.8 mmHg TV Peak E Velocity 90.0 cm/s PV Peak Velocity 96.0 cm/s FINDINGS Left Ventricle Normal left ventricular size and systolic function, EF 58% . Mild hypokinesia of the basal inferior wall segment Right Ventricle The right ventricle is normal in size and function. Right Atrium The right atrium is normal in size. Left Atrium Mildly increased left atrial size. Mitral Valve Trace mitral valve regurgitation. Aortic Valve No gross abnormalities noted Tricuspid Valve Trace tricuspid valve regurgitation. Pulmonic Valve Pulmonic valve not well visualized. Pericardium Normal pericardium without effusion. Aorta Normal ascending aorta dimension. IVC Inferior vena cava not visualized. CONCLUSIONS Normal left ventricular size and systolic function, EF 58% . Mild hypokinesia of the basal inferior wall segment. Mildly increased left atrial size. Trace mitral valve regurgitation. Trace tricuspid valve regurgitation. Estimated PA pressure, possibly within normal limits There is no pericardial effusion. There are no intracardiac masses. No similar previous studies are available for comparison Dr Peggy Messer MD [facility] (Electronically Signed) Final Date: 02 October 2024 17:10 S
[2024-10-02] MEDS: heparin 5,000 unit/mL INJ 1 mL IVP (12:43)
[2024-10-02] MEDS: heparin drip 25,000 UNIT/500 ML PREMIX 20 UNIT IV (12:44)
--- NOTE | 2024-10-02 12:58 | P.CONIM_ITS ---
Providers/Reason For Consult 2 Consulting Physician/Specialty*: NIKOLE Messer MD/cardiology Reason for Consult*: Patient with chest pain and elevated troponin T Requesting Physician: Dr. Castillo Attending Physician: Tejas Castillo History of Present Illness History of Present Illness Dl Cohen is a 69 year old male with no significant advised medical history, he is admitted to the hospital due to emergency room bradycardia present with complaints of chest tightness and shortness of breath. He was found to have an elevated troponin T and bradycardia. Cardiology consult is requested for further cardiac evaluation and recommendations. This patient apparently has been in his baseline state of health up until this morning around 6:00 when he started having tight feeling in the upper substernal region, associated with shortness of breath. The intensity of the pressure was around 4/10. It was radiating across the chest. He took his blood pressure at that time which was found to be 190/106. Repeat blood pressure was showed a systolic pressure in the 200 range. Because of the persistence of this symptom, he initially went to the [facility]. He had an EKG done in the clinic which revealed a sinus bradycardia. His chest tightness was of 2/10 in intensity at that time. Because of the symptoms, he is advised to be evaluated in our hospital emergency room. So the patient drove to our ER. His initial troponin T was 76 with a 2-hour delta of 41. At the time of my examination, patient has some heaviness in the chest but most of the symptoms are gone. He has no fever, chills or cough. No other associated symptoms. He has a questionable history of dyslipidemia. He has been on dietary modification. He never had any high blood pressure. No diabetes, CVA or peripheral artery disease. No history of chronic kidney disease, liver disease or bleeding disorders. Yesterday morning, he was having some tight feeling in the chest as he was getting back to his house after feeding the animals, walking uphill. Tightness/heaviness lasted for 10 minutes or so and then gradually subsided. Never had any similar symptoms in the past. He has a history of prostate cancer for which he underwent a prostate surgery. Also history of psoriasis and DMT on disease. Denies any smoking abuse. He consumes 1 shot of whiskey every evening. No other substance abuse. His father had a myocardial infarction in his 80s. No other relevant family history. Review of Systems 2 Narrative: CONSTITUTIONAL: No fever or chills. EYES: No blurring of vision or other visual disturbances lately. ENT: No hoarseness of voice, auditory disturbances or sore throat. CARDIOVASCULAR: As mentioned above. RESPIRATORY: No significant cough. GASTROINTESTINAL: No hematemesis or melena. GENITOURINARY: No dysuria or hematuria. INTEGUMENTARY: No skin rashes or history of skin cancer. NEURO: No transient ischemic attacks or amaurosis. PSYCHIATRIC: No history of psychosis or major depression. HEMATOLOGIC: No bleeding disorders or significant anemia. ENDOCRINE: No history of polyuria or polydipsia. MUSCULOSKELETAL: No recent joint pain or swelling. ALLERGY/IMMUNOLOGY: As mentioned above. Medications/Allergies Home Medications ?Medication ?Instructions ?Recorded ?Confirmed ?Last Taken ?Type adalimumab 40 mg/0.8 mL 40 mg SUBCUT Q14D 10/02/24 0 10/02/24 Unknown History subcutaneous syringe kit (Humira) ascorbic acid 30 mg-collagen, 1 tab PO DAILY 10/02/24 10/02/24 10/01/24 History hydrolyzed 833.3 mg tablet (Collagen Skin Renewal) ibuprofen 200 mg tablet (Advil) 200 mg PO Q6H PRN Feve r Or Pain 10/02/24 10/02/24 Unknown History Allergies Allergy/AdvReac Type Severity Reaction Status Date / Time Latex, Natural Rubber Allergy Unknown Verified 10/02/24 08:56 Current Medications Generic Name Dose Route Start Last Admin Trade Name Freq PRN Reason Stop Dose Admin Heparin Sodium/Sodium Chloride 25,000 unit in 500 mls @ 0 mls/hr 10/02/24 11:15 10/02/24 12:44 Heparin Drip IV 13.78 unit/kg/hr CONT KATHLEEN 20 mls/hr Protocol Administration Per Protocol PFSH Acute 2 PFSH: Medical History Appendicitis Psoriatic arthritis Psoriasis Surgical History Hx of appendectomy Social History Smoking and tobacco/nicotine status: never used tobacco/nicotine Alcohol intake: current Alcohol intake frequency: 3 or more drinks per day Alcohol type: beer and hard liquor Marital status: Vitals/I&O/Wt Last Vital Signs Temp 98.6 F 10/02/24 08:51 Pulse 54 L 10/02/24 11:20 Resp 17 10/02/24 11:20 BP 125/77 10/02/24 11:20 Pulse Ox 98 10/02/24 11:20 O2 Del Method Room Air 10/02/24 12:13 Weight last 48 hrs Weight 164 lb 4.8 oz Weight 160 lb Physical Exam 2 Narrative: GENERAL: The patient is alert and oriented times three. Not in any acute distress. HEENT: No significant pallor, icterus or lymphadenopathy.Oral cavity: There are no mucous membrane lesions. NECK: Trachea appears to be central. No masses noted. No JVD or thyromegaly appreciated. RESPIRATORY: Chest is symmetrical. No intercostals muscle retraction or any accessory muscle activation. There is no chest wall tenderness. Breath sounds are heard bilaterally. No rales or rhonchi heard. No evidence of any consolidation. BREASTS: Deferred. HEART: The heart sounds are normal. No S3 or S4. No significant murmurs. No pericardial rub ABDOMEN: No vessel pulsations or distention. No tenderness. No organomegaly appreciated. Bowel sounds are normally heard. : Deferred. RECTAL: Deferred. LYMPHATIC: No lymphadenopathy noted in the neck. EXTREMITIES: No edema or cyanosis. No clubbing. MUSCULOSKELETAL: No acute joint deformities or swelling SKIN: There are no significant rashes or ecchymosis NEUROPSYCHIATRIC: The patient is alert and oriented x3. Appears to be in a good mood. No tremors or rigidity noted. Data 10/02/24 08:59 10/02/24 08:59 Other Labs: Laboratory Last Values WBC 6.13 10^3/uL (3.29-11.43) 10/02/24 08:59 RBC 4.66 10^6/uL (3.85-5.65) 10/02/24 08:59 Hgb 15.00 g/dL (11.27-16.99) 10/02/24 08:59 Hct 43.1 % (37-53) 10/02/24 08:59 MCV 92.5 fl (82-101) 10/02/24 08:59 MCH 32.2 pg (27-33) 10/02/24 08:59 MCHC 34.8 g/dL (30-55) 10/02/24 08:59 RDW 12.7 % (12.1-15.1) 10/02/24 08:59 Plt Count 215 10^3/cmm (157-399) 10/02/24 08:59 MPV 8.6 fL (7.4-10.4) 10/02/24 08:59 Neut % (Auto) 41.2 % 10/02/24 08:59 Lymph % (Auto) 45.8 % 10/02/24 08:59 Huntington % (Auto) 9.5 % 10/02/24 08:59 Eos % (Auto) 2.8 % 10/02/24 08:59 Baso % (Auto) 0.5 % 10/02/24 08:59 Neut # (Auto) 2.53 10^3/uL (1.8-7.7) 10/02/24 08:59 Lymph # (Auto) 2.8 10^3/uL (0.8-4.8) 10/02/24 08:59 Huntington # (Auto) 0.6 10^3/uL (0.2-0.9) 10/02/24 08:59 Eos # (Auto) 0.2 10^3/uL (0.0-0.8) 10/02/24 08:59 Baso # (Auto) 0.0 10^3/uL (0.0-0.1) 10/02/24 08:59 Nucleated RBC % (auto) 0 % 10/02/24 08:59 Nucleated RBCs # 0.0 /100WBC 10/02/24 08:59 Sodium 140 mmol/L (136-145) 10/02/24 08:59 Potassium 4.6 mmol/L (3.5-5.1) 10/02/24 08:59 Chloride 105 mmol/L (98-107) 10/02/24 08:59 Carbon Dioxide 24 mmol/L (22-29) 10/02/24 08:59 Anion Gap 15.6 (5-19) 10/02/24 08:59 BUN 18 mg/dL (8-23) 10/02/24 08:59 Creatinine 0.7 mg/dL (0.7-1.2) 10/02/24 08:59 GFR Calculation 112.1 mL/min (90-130) 10/02/24 08:59 Glucose 100 mg/dL (65-115) 10/02/24 08:59 Calculated Osmolality 292 mOsm/kg (285-295) 10/02/24 08:59 Calcium 9.4 mg/dL (8.5-10.5) 10/02/24 08:59 Total Bilirubin 0.4 mg/dL (0.15-1.2) 10/02/24 08:59 AST 29 U/L (0-40) 10/02/24 08:59 ALT 29 U/L (0-41) 10/02/24 08:59 Alkaline Phosphatase 73 U/L (40-130) 10/02/24 08:59 Troponin T Baseline 76 ng/L (0-15) H 10/02/24 08:59 Troponin T 120 Minute 116.4 ng/L (0-15) H 10/02/24 10:25 Delta Troponin T 40.4 ABS# (0-10) H* 10/02/24 10:25 Total Protein 7.6 g/dL (6.6-8.7) 10/02/24 08:59 Albumin 4.4 g/dL (3.5-5.2) 10/02/24 08:59 Globulin 3.2 g/dL (1.3-4.6) 10/02/24 08:59 Other data: The EKG showed sinus bradycardia with a normal ST Ts. A&P Assessment and plan 1. Elevated troponin: The patient's elevated troponin T with a significant delta is suggestive of a non-ST elevation myocardial infarction. He seems to be stable from a hemodynamic stand point. He may be started on IV heparin. Echocardiogram would be helpful to evaluate LV function and rule out renal pathology. Also may give him 300 mg of Plavix p.o. followed by 75 mg p.o. daily. 2. Elevated blood pressure reading: ndpoint. Currently normotensive. May hold off on any medications at this time. 3. Bradycardia: The bradycardia, could be related to ischemia. Other etiologies cannot be excluded. We will check the TSH 4. Dyslipidemia: I am go ahead and start the patient on Lipitor 40 mg p.o. now and daily. Will do a lipid profile on the blood in the lab. Plan: Patient requires a characterization to further evaluate the coronary status and decide on further management.. We may make a decision on that after reviewing the above test results. Based on the clinical progress on the results of the above, further recommendations will be made. Thank you for the opportunity to evaluate this patient and make these recommendations PDMP PDMP Reviewed: Not Reviewed Coding Level of Care Code 56193 Diagnoses Elevated troponin R79.89 Elevated blood pressure reading R03.0 Bradycardia R00.1 Dyslipidemia E78.5
[2024-10-02 13:15] LABS: Thyroid Stimulating Hormone 0.85 uIU/mL (0.27-4.20)
[2024-10-02 13:29] LABS: Cholesterol 255 mg/dL (0-200); HDL Cholesterol 52 mg/dL (60-100); Triglycerides 271 mg/dL (0-150)
--- NOTE | 2024-10-02 17:42 | PC.NURSE ---
Dr Messer gave verbal orders for lab analyst procedure for 10/03/[address] staff to place orders.
[2024-10-02 18:17] LABS: Troponin T (5th) Once 274 ng/L (0-15)
[2024-10-02 19:53] LABS: Partial Thromboplastin Time 108.6 SECONDS (23.9-36.7)
[2024-10-03] VITALS (30 sets, daily range): BP systolic 93–143; BP diastolic 47–80; PULSE 41–68; RESP 10–34; TEMP 36.4–36.8; O2SAT 93–99
[2024-10-03 01:58] LABS: Hematocrit 38.3 % (37-53); Hemoglobin 13.40 g/dL (11.27-16.99); Mean Corpuscular HGB Conc 35.0 g/dL (30-55); Mean Corpuscular Hemoglobin 32.7 pg (27-33); Mean Corpuscular Volume 93.4 fl (82-101); Nucleated Red Blood Cells % 0 %; Platelet Count 186 10^3/cmm (157-399); Red Blood Count 4.10 10^6/uL (3.85-5.65); White Blood Count 8.42 10^3/uL (3.29-11.43)
[2024-10-03 02:22] LABS: Partial Thromboplastin Time 75.8 SECONDS (23.9-36.7)
[2024-10-03 02:23] LABS: Anion Gap 13.9 (5-19); Blood Urea Nitrogen 20 mg/dL (8-23); Calcium 8.7 mg/dL (8.5-10.5); Carbon Dioxide 24 mmol/L (22-29); Chloride 106 mmol/L (98-107); Creatinine Clr Calc Pharmacy 77.1889; Glucose 95 mg/dL (65-115); Osmolality Calculated 292 mOsm/kg (285-295); Potassium 3.9 mmol/L (3.5-5.1); Sodium 140 mmol/L (136-145)
--- NOTE | 2024-10-03 03:15 | PC.NURSE ---
Addendum entered by Eva Rizo RN 10/03/24 03:18: Telemetry strip printed and placed in patient chart. Original Note: Patient HR got down as low as 37, patient is asymptomatic. Dr Tracey was notified and updated of HR. No new orders at this time.
--- NOTE | 2024-10-03 07:00 | XACV_ITS ---
Exam Room: 2 Ht: 170 cm Wt: 74 kg BSA: 1.89 m2 Gender: Male : 1955 Any Known Allergies: Latex Exam Priority: Routine Procedure(s): Procedure Description: Diagnostic procedure Procedure Description: Left Heart Catheterization Procedure Description: Left ventriculography Procedure Description: Miscellaneous Procedure Description: ACT Procedure Description: Coronary Angiography Gui ARAUJO; Diagnostic Cath Status: Elective Diagnostic Findings * The left main is a medium caliber vessel with no significant stenotic lesions. * The left hand descending artery is a medium caliber vessel which appears to wrap around the LV apex minimally. The mid LAD was found to have moderate to severe diffuse disease 50 to 75%. Distal LAD was found to have minimal intimal irregularities. The first diagonal branch was found to have a high-grade 98% lesion proximally. The ostium of the first diagonal also was found to have around 50 to 60% diffuse disease. The second diagonal branch is a small caliber vessel with moderate diffuse disease proximally. * The left circumflex artery is a medium caliber codominant vessel which was found to have moderate to severe diffuse disease in the midsegment, after the takeoff of the first obtuse marginal branch. The lesions ranging anywhere from 50 to 70%. The second obtuse marginal artery was found to have around 60 % ostial stenosis. * The right coronary artery is a medium caliber codominant vessel which was found to have 40 to 50% diffuse disease in the PLV branch. The PDA branch is a small caliber slender and tortuous vessel. Conclusions 1. This 69-year-old white male with a history of dyslipidemia, not on any medication, was admitted to hospital with features of an acute non-ST elevation myocardial infarction. He had a baseline troponin T of 70 with a 2-hour delta of 40 and a 6-hour delta of around 200. For further evaluation of his coronary status, and cardiac catheterization was recommended. Patient underwent left heart catheterization with left and right coronary angiogram and LV angiogram today. The findings are as follows.. 2. No significant left main disease. Moderately severe diffuse disease in the mid LAD. High-grade/critical stenosis of the proximal segment of first diagonal branch of the left and descending artery with some involvement of the ostium. Moderate to severe diffuse disease in the mid circumflex artery. Moderate disease at the ostium of the second obtuse marginal branch. Mild diffuse disease in the PLV branch of the codominant RCA. LV atrial fraction of 50%. Mild diffuse hypokinesis of the anteroapical region. LVEDP of 22 mmHg.. 3. I reviewed and discussed the cardiac catheterization data with Dr. Dorman. In view of the complexity of the coronary lesions, surgical revascularization may be a better option. Since we do not have the surgical backup, if at all the percutaneous intervention is performed, I should be in a facility with the surgical backup. So it was decided not to do any intervention in our facility. Diagnostic RX Recommendation: CABG LV EDP: 22 mmHg Ventriculography Ejection Fraction: 50.0 % Left Ventriculography Findings: * The LV gram was performed the PINEDA projection. The LV cavity appeared to be normal size. There was mild diffuse hypokinesis of the anteroapical region. LVEDP was 22 mmHg. No filling defects are noted. No significant mitral valve prolapse. Mild mitral regurgitation was noted. Pressures Phase:Rest AO : 122 / 66 ( 88 ) @ 9:47:00 AM 106 / 68 ( 86 ) @ 9:47:00 AM 106 / 75 ( 88 ) @ 9:49:00 AM 147 / 62 ( 99 ) @ 10:01:00 AM 144 / 67 ( 100 ) @ 10:01:00 AM LV : 135 / 1 / 22 @ 10:00:00 AM 132 / 5 / 24 @ 10:01:00 AM 132 / @ 10:01:00 AM Valves Phase:DefaultPhase AV : 0.0 @ 9:08:42 AM AV Mean Gradient: 0.0 @ 9:08:42 AM Clinical Evaluation EBL: 5mL-10mL Procedural Details Current Diagnosis : Chest Pain. Pre-Procedure Time Out. Identified patient by full name and date of as verbalized by the patient/guarantor. Does the consent match the physician's order: Yes. Accurate & Complete Informed Consent: Yes. Inpatient/Outpatient History & Physical on Chart: Yes. If H&P is completed, is and addenduem needed: No; If yes, is the addendum complete: N/A. Visualize and Verify Site with Patient/Guarantor: N/A. Relevant Radiology Images available: Yes. Pre-op teaching completed and patient verbalized understanding. The risks, benefits, and alternatives of sedation and/or procedure were discussed by physician. The patient agrees to continue. Procedure started. [facility] Clinical Fraility Score: 3: Managing Well. Manager Sales Training Indications: ACS > 24 hours. Chest Pain Symptom Assessment: Typical Angina Symptoms. Correct patient, site and procedure confirmed by cath team. Current diagnosis: NSTEMI. PERRLA. 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 Lungs clear x 5 lobes. IV Site on Arrival: 18 gauge in the right anticubital. IV Fluids: 0.9% NaCl at KVO. 0 mL infused prior to concrete laborer. Oxygen started at 2liters/min via nasal canula. right groin was prepped with chloroprep then draped in the usual sterile fashion. right radial was prepped with chloroprep then draped in the usual sterile fashion. Baseline sample Acquired. HR: 52 BPM. Physician arrived. Physician scrubbed in. Immediate Pre-Procedure Time Out. Correct Patient: Yes; Correct Procedure: Yes; Correct Site: Yes; Correct Patient Position: Yes; Correct Supplies: Yes; Dried Flammable Prep: Yes; Blood Products Available: N/A;. Lidocaine 1% infiltrated to the right radial. Arterial access obtained. A 5 eritrean Patrice catheter in over wire. ACT drawn. Results 157 seconds. Therapeutic limits - pre-heparin administration 90-150 seconds and monitoring heparin during a vascular procedure >250 seconds. Multiple views taken of left coronary artery. Dr. Dorman called to review films. Catheter redirected to the RCA. Catheter removed over the exchange wire. A 5 eritrean JR4 catheter in over wire. Dr. Dorman arrived. Multiple views taken of right coronary artery. Physician review of cine films. Catheter attached to heparnized Saline flush at KVO to maintain patency. Catheter removed over the exchange wire. A 5 eritrean Angled Pig catheter in over wire. EDP Sample taken: LV 135/1,22; HR: 52 BPM; SpO2: 98%. LV gram performed in PINEDA @ 10 mL/second for a total of 30 mL. EDP Sample taken: LV 132/5,24; HR: 57 BPM; SpO2: 95%. Pullback taken: LV 132/4,24; AO 147/62(99); Mean: 0mmHg, Peak to Peak: 0mmHg, SEP: 5sec/min; HR: 58 BPM; SpO2: 95%. Catheter removed over the exchange wire. A TR Band was successful obtaining hemostatsis at the Right Radial artery insertion site. Post Procedure: Pulses reassessed and unchanged. PERRLA. 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 No VTE prophylaxis required. Medication's Wasted: Lidocaine 1% = 18 mL. Medication's Wasted: Verapamil = 5 mg. Medication's Wasted: Nitro = 49.8 mcg. Medication's Wasted: Heparin = 3000 units. Medication's Wasted: Other = Fentanyl 50 mcg. Total IV fluids: 30 mL. Vital chart was stopped. Post-op diagnosis: Multi-vessel CAD. Complications: None. Estimated blood loss: 5mL-10mL. Responsiveness - Normal response to verbal stimuli; alert and oriented, PERRLA. Airway - Unaffected, no intervention required; spontaneous ventilation. Circulation: W/N/L, pulses unchanged. Nausea/Vomiting: No. Procedure completed. Patient transferred by bed to 1st floor. Access Site Site: Right Radial artery Sheath Size: 6 Fr Hemostasis Method: TR Band Hemostasis Success: Successful Procedure Medications Start: 8:27 AM Stop: 8:27 AM Medication: Benadryl Amount: 25 mg Route: I.V. Start: 8:36 AM Stop: 8:36 AM Medication: Versed Amount: 1 mg Route: I.V. Start: 8:36 AM Stop: 8:36 AM Medication: Fentanyl Amount: 50 mcg Route: I.V. Start: 8:42 AM Stop: 8:42 AM Medication: Versed Amount: 1 mg Route: I.V. Start: 8:44 AM Stop: 8:44 AM Medication: Nitrogylcerin Amount: 200 mcg Route: I.A. Start: 8:51 AM Stop: 8:51 AM Medication: Heparin Amount: 3000 units Route: I.V. I, the attending physician, have reviewed and verified all procedure medications. Yes, all medications given per verbal order History/Risk Factors Hypertension: No Dyslipidemia: No Peripheral Arterial Disease (PAD): No Myocardial Infarction (SC): No Obesity: No Renal Disease: No Tobacco Use: Never Prior Interventions PCI: No CABG: No Valve Surgery: No Report Signatures Finalized by Dr Peggy Messer MD [facility] on 10/03/2024 09:37 AM
--- OUTSIDE RECORDS SUMMARY | 2024-10-03 07:15 | XMS_ITS | Clinical Summary ---
Author Organization [facility] Address [address] [address] Care Team Providers Care Commercial Attache Name Role Phone Sadiq Ribera DO Primary Care Provider [phone] Allergies Active Allergy Reactions Criticality Noted Date Comments Alpha-Gal (Iaudsezdr-Ggdpe-7,3-Galactose) Unknown 03/06/2024 Medications adalimumab (Humira,CF, Pen) 40 [...] Description 10/02/2024 7:40 AM CDT Office Visit [facility] ([place], [place]) [address] [address] Barbe, Sadiq, DO Precordial pain (Primary Dx); Mixed hyperlipidemia 10/02/2024 Nurse Triage [place] [id number] [address] [place] [address] Swathi Ames RN 09/23/2024 External Device Data ST[facility] ABSTRACTION Provider, Abstract 09/16/2024 External Device Data STL ABSTRACTION Provider, Abstract 09/09/2024 External Device Data ST[place] ABSTRACTION Provider, Abstract 08/14/2024 External Device Data STL ABSTRACTION Provider, Abstract 08/14/2024 External Device Data STL ABSTRACTION Provider, Abstract 08/01/2024 9:40 AM CDT Procedure visit [facility] ([place], [place]) [address] [phone] 07/23/[address] 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 ([place], [place]) [address] [address] Sadiq Ribera DO [address] [place] [phone] Health Maintenance Due Date Last Done [...] - 1-dose 75+ series) 08/09/2031 [place]) Preventative Visit/Annual Wellness Visit Completed 06/04/2024, 04/24/2024 Procedures Procedure Name Priority Date/Time Associated Diagnosis Comments CO ECG ROUTINE ECG W/LEAST 12 LDS W/I&R Routine 10/02/2024 7:40 AM CDT Precordial pain HEMOGLOBIN A1C Routine 04/08/2024 9:27 AM MUCK FARMER Diabetes mellitus screening COLONOSCOPY REPORT 08/02/2020 3: 06 PM CDT from Last 3 Months or Most Recently Relevant to Health Maintenance Results * CO ECG ROUTINE ECG W/LEAST 12 LDS W/I&R (10/02/2024 7:40 AM CDT) Narrative [facility] - 10/02/2024 7:40 AM CDT Sadiq Ribera [...] Anxiety Arthritis Back pain Cancer ([facility]) Headache Hyperlipidemia IBS (irritable bowel syndrome) Prostate CA (CMS/HCC) Travel advice encounter 12/17/2020 Past Surgical History: Procedure Laterality Date HX APPENDECTOMY HX PROSTATECTOMY HX WRIST FUSION Right 1999 [place] COLONOSCOPY FLX DX W/COLLJ SPEC WHEN PFRMD N/A 08/02/2020 COLONOSCOPY performed by Chetan Gavin DO at [facility] X[facility] WRIST Right 1996 Social [...] Discussed closestavailable facility with interventional cardiology is [place], [place]. Patient did proceed by private vehicle, refusedtransport by EMS TOBACCO/NICOTINE COUNSELING He is not a tobacco/nicotine user. The author of this note, patient (or authorized inside sales representative), and allother persons present consent to the audio recording of this visit forcharting documentation purposes. This note was automatically generated by a Generative AI technology(Archive), reviewed, edited, and finalized by DO Zaid. Sadiq Ribera DO Portions of this note were created using [employer] Dictation software.Attempts were made to correct any [...] Sadiq Ribera DO ECG ORDERABLES Final Result [facility]# [id number] [address] [place] [address] * HEMOGLOBIN A1C (04/08/2024 9:27 AM MUCK FARMER) HEMOGLOBIN A1C 5.6 <5.7 % of total [...] diagnosis of diabetes in children. According to [place] Diabetes Association (ADA) guidelines, hemoglobin A1c <7.0% represents optimal control in non- diabetic patients. Different metrics may apply to specific patient populations. Standards of Medical Care in Diabetes(ADA). ESTIMATED AVERAGE GLUCOSE (MG/DL) 114 mg/dL [facility] ESTIMATED AVERAGE GLUCOSE (MMOL/L) 6.3 mmol/L [facility] Comment: FASTING:YES FASTING: YES Test Performed at: [facility] [address] [address] Cyrus Yadav MD Blood 04/08/2024 9:27 AM MUCK FARMER 04/08/2024 9:28 AM MUCK FARMER us Jina Iftikhar Smith HOST AND HOSTESS CHEMISTRY ORDERABLES Final Re sult [facility] [phone] [facility] [address] [address] * COLONOSCOPY REPORT (08/02/2020 3:06 PM CDT) Narrative Procedure Note Chetan Gavin DO - 08/02/2020 3:06 PM CDT Procedures signed by Chetan Gavin DO at 08/02/2020 3:06 PM Author: Chetan Gavin DO Service: -- Author Type: Physician Filed: 08/02/2020 3:06 PM Date of Service: 08/02/2020 3:06 PM Status:Signed Pillowcase Turner: Chetan Gavin DO (Physician) Procedure Orders 1. COLONOSCOPY REPORT [[id number]] ordered by Chetan Gavin DOat 08/02/[address] [place] [address] GI Patient Name: Rickey Cohen Procedure Date: [...] Scope Out: 3:03:01 PM [address] [place], [place] Chetan Gavin DO GI PROCEDURE ORDERABLES Edited Result - Final from Last 3 Months or Most Recently Relevant to Health Maintenance Insurance [facility] * Guarantor: RICKEY COHEN Account Type Relation to Patient Date of Phone Billing Address Personal/Family [address] [place] [address] RX [employer] Medicare Part D Care Teams Commercial Attache Relationship Specialty Start Date End Date Sadiq Ribera DO [address] [place] [address] PCP - General Family Practice 03/05/24
--- OUTSIDE RECORDS SUMMARY | 2024-10-03 07:15 | XMS_ITS | Encounter Summary ---
Author Organization [facility] Address [address] [place] [address] Care Team Providers Care Survey Associate Name Role Phone Sadiq Ribera DO Primary Care Provider [phone] Encounter Details Date Type Department Care Team (Latest Contact Info) Description 04/10/2024 Results Follow-Up [facility] [address] [phone] Jina Smith FNP [address] [place] [phone] PSA, CBC WITH DIFFERENTIAL, COMPREHENSIVE METABOLIC PANEL, Additional followed-up results: 3 Social History Tobacco Use Types Packs/Day Years Used Date Smoking Tobacco: Never Smokeless Tobacco: Never Alcohol Use Standard Drinks/Week Comments Yes 1 (1 standard drink = 0.6 oz pur e alcohol) daily Sex and Gender Information Value Date Recorded Sex Assigned at Not on file Legal 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 Gender Identity Not on file Sexual Orientation Not on file documented as of this encounter Plan of Treatment Upcoming Encounters Date Type Department Care Team (Late st Contact Info) Description 04/24/2025 10:00 AM NET ARCHITECT Office Visit [facility] [address] [phone] Sadiq Ribera DO [address] [place] [phone] documented as of this encounter Visit Diagnoses Not on filedocumented in this encounter Care Teams Survey Associate Relationship Specialty Start Date End Date Sadiq Ribera DO [address] [place] [address] PCP - General Family Practice 03/05/24 documented as of this encounter
--- OUTSIDE RECORDS SUMMARY | 2024-10-03 07:15 | XMS_ITS | Encounter Summary ---
Author Organization [facility] Address 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 Chest Pain 10/02/2024 Encounter Details Date Type Department Care Team (Late st Contact Info) Description 10/02/2024 Nurse Triage [facility] [address] [facility] [place] [address] Swathi Ames RN Social History Tobacco Use Types Packs/Day Years Used Date Smoking Tobacco: Never Smokeless Tobacco: Never Alcohol Use Standard Drinks/Week Comments Yes 1 (1 standard drink = 0.6 oz pur e alcohol) daily Sex and Gender Information Value Date Recorded Sex Assigned at Not on file 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 Swathi Ames RN [facility] 365 Reason for Disposition [1] Chest pain lasts > 5 minutes AND [2] age > 44 Protocols used: Chest Pain-A-AH documented in this encounter Plan of Treatment Upcoming Encounters Date Type Department Care Team (Late st Contact Info) Description 04/24/2025 10:00 AM AWNING INSTALLER Office Visit [facility] [address] [place] [phone] Sadiq Ribera DO [address] [place] [phone] documented as of this encounter Visit Diagnoses Not on filedocumented in this encounter Care Teams Scrub Nurse Relationship Specialty Start Date End Date Sadiq Ribera DO [address] [place] [phone] PCP - General Family Practice 03/05/24 documented as of this encounter
--- OUTSIDE RECORDS SUMMARY | 2024-10-03 07:15 | XMS_ITS | Clinical Summary ---
Author Organization [facility] Address [address] [place] [phone] Care Team Providers Care Relay Telegrapher Name Role Phone Sadiq Ribera DO Primary Care Provider [phone] Allergies No known active allergies Medications adalimumab [...] VACCINE (1 of 2) 2006 Medicare [place]vantage ([place] Prev entative Visit/Annual Wellness Visit 03/26/2024 INFLUENZA [...] Gavin DO - 08/02/2020 3:06 PM CDT [facility] GI Patient Name: Rickey Cohen Procedure Date: [...] Scope Out: 3:03:01 PM [address] [place], [place] us Chetan Gavin DO GI PROCEDURE ORDERABLES Final Result from Last 3 Months or Most Recently Relevant to Health Maintenance Insurance [employer] [id number] HMO RX [employer] Medicare Part D Advance Directives For more information, please contact: [phone] * Full Code (Latest Code Status on File) Date Activated Date Inactivated Comments 08/02/2020 2:19 PM 08/02/2020 5:39 PM Care Teams Relay Telegrapher Relationship Specialty Start Date End Date Sadiq Ribera DO [address] [place] [phone] PCP - General Family Practice 01/23/20
--- OUTSIDE RECORDS SUMMARY | 2024-10-03 07:15 | XMS_ITS ---
Author Organization [facility] Address [address] [place] [phone] Care Team Providers Care Glassware Engraver Name Role Phone TrishaSadiq salgado Primary Care Provider [phone] Active Problems Problem Noted Date Diagnosed Date [...]
--- NOTE | 2024-10-03 07:56 | PM.PN ---
Subjective Subjective: The patient is feeling okay. He has no chest pain or palpitations. No dizziness or syncopal episode. He had echocardiogram yesterday. The basal inferior wall segment was found to be somewhat hypokinetic. Overall ejection fraction was within normal limits. No pericardial effusion. Medications: Medication Review Details: Current Medications Acetaminophen (Acetaminophen 325 Mg Tablet) 650 mg PO Q6H PRN PRN Reason: Mild/Mod Pain Or Temp >/= 101 Aspirin (Aspirin 81 Mg Ec Tablet) 81 mg PO DAILY KATHLEEN Last Admin: 10/03/24 06:50 Dose: Not Given Atorvastatin Calcium (Atorvastatin 40 Mg Tablet) 40 mg PO BEDTIME KATHLEEN Last Admin: 10/02/24 20:52 Dose: 40 mg Heparin Sodium (Porcine) (Heparin 5,000 Unit/Ml Inj 1 Ml) 0 unit IVP PRN PRN; Protocol PRN Reason: Heparin Weight Based Protocol -Subsequent Bolus Heparin Sodium/Sodium Chloride (Heparin Drip) 25,000 unit in 500 mls @ 0 mls/hr IV CONT KATHLEEN; Protocol Last Titration: 10/03/24 03:05 Dose: 10.33 unit/kg/hr, 15 mls/hr Sodium Chloride (Sodium Chloride 0.9%) 1,000 mls @ 50 mls/hr IV .Q20H KATHLEEN Sodium Chloride (Sodium Chloride 0.9%) 1,000 mls @ 50 mls/hr IV .Q20H ONE Stop: 10/03/24 16:05 Last Admin: 10/03/24 06:48 Dose: Not Given Morphine Sulfate (Morphine 4 Mg/Ml Sdv 1 Ml) 2 mg IVP Q4H PRN PRN Reason: SEVERE PAIN Ondansetron HCl (Ondansetron 2 Mg/Ml Sdv 2 Ml) 4 mg IVP Q8H PRN PRN Reason: vomiting, or N/V if npo Vitals/I&O/Wt Last Vital Signs Temp 97.7 F 10/03/24 07:38 Pulse 49 L 10/03/24 07:38 Resp 13 10/03/24 07:38 BP 121/64 10/03/24 07:38 Pulse Ox 97 10/03/24 07:38 O2 Del Method Room Air 10/03/24 07:38 10/02/24 10/03/24 10/03/24 22:59 06:59 14:59 Intake Total 151.667 / 391.667 108.267 / 499.934 Balance 151.667 / 391.667 108.267 / 499.934 Weight last 48 hrs Weight 164 lb 4.8 oz Weight 160 lb Physical Exam Narrative: GENERAL: The patient is alert and oriented times three. Not in any acute distress. HEENT: No significant pallor, icterus or lymphadenopathy.Oral cavity: There are no mucous membrane lesions. NECK: Trachea appears to be central. No masses noted. No JVD or thyromegaly appreciated. RESPIRATORY: Chest is symmetrical. No intercostals muscle retraction or any accessory muscle activation. There is no chest wall tenderness. Breath sounds are heard bilaterally. No rales or rhonchi heard. No evidence of any consolidation. BREASTS: Deferred. HEART: The heart sounds are normal. No S3 or S4. No significant murmurs. No pericardial rub ABDOMEN: No vessel pulsations or distention. No tenderness. No organomegaly appreciated. Bowel sounds are normally heard. : Deferred. RECTAL: Deferred. LYMPHATIC: No lymphadenopathy noted in the neck. EXTREMITIES: No edema or cyanosis. No clubbing. MUSCULOSKELETAL: No acute joint deformities or swelling SKIN: There are no significant rashes or ecchymosis NEUROPSYCHIATRIC: The patient is alert and oriented x3. Appears to be in a good mood. No tremors or rigidity noted. Data 10/03/24 01:51 10/03/24 01:51 Other Labs: Laboratory Last Values WBC 8.42 10^3/uL (3.29-11.43) 10/03/24 01:51 RBC 4.10 10^6/uL (3.85-5.65) 10/03/24 01:51 Hgb 13.40 g/dL (11.27-16.99) 10/03/24 01:51 Hct 38.3 % (37-53) 10/03/24 01:51 MCV 93.4 fl (82-101) 10/03/24 01:51 MCH 32.7 pg (27-33) 10/03/24 01:51 MCHC 35.0 g/dL (30-55) 10/03/24 01:51 RDW 13.0 % (12.1-15.1) 10/03/24 01:51 Plt Count 186 10^3/cmm (157-399) 10/03/24 01:51 MPV 8.9 fL (7.4-10.4) 10/03/24 01:51 Neut % (Auto) 48.6 % 10/03/24 01:51 Lymph % (Auto) 41.2 % 10/03/24 01:51 Frederick % (Auto) 7.0 % 10/03/24 01:51 Eos % (Auto) 2.6 % 10/03/24 01:51 Baso % (Auto) 0.4 % 10/03/24 01:51 Neut # (Auto) 4.09 10^3/uL (1.8-7.7) 10/03/24 01:51 Lymph # (Auto) 3.5 10^3/uL (0.8-4.8) 10/03/24 01:51 Frederick # (Auto) 0.6 10^3/uL (0.2-0.9) 10/03/24 01:51 Eos # (Auto) 0.2 10^3/uL (0.0-0.8) 10/03/24 01:51 Baso # (Auto) 0.0 10^3/uL (0.0-0.1) 10/03/24 01:51 Nucleated RBC % (auto) 0 % 10/03/24 01:51 Nucleated RBCs # 0.0 /100WBC 10/03/24 01:51 APTT 75.8 SECONDS (23.9-36.7) H 10/03/24 01:51 Sodium 140 mmol/L (136-145) 10/03/24 01:51 Potassium 3.9 mmol/L (3.5-5.1) 10/03/24 01:51 Chloride 106 mmol/L (98-107) 10/03/24 01:51 Carbon Dioxide 24 mmol/L (22-29) 10/03/24 01:51 Anion Gap 13.9 (5-19) 10/03/24 01:51 BUN 20 mg/dL (8-23) 10/03/24 01:51 Creatinine 0.9 mg/dL (0.7-1.2) 10/03/24 01:51 GFR Calculation 83.9 mL/min (90-130) L 10/03/24 01:51 Glucose 95 mg/dL (65-115) 10/03/24 01:51 Calculated Osmolality 292 mOsm/kg (285-295) 10/03/24 01:51 Calcium 8.7 mg/dL (8.5-10.5) 10/03/24 01:51 Total Bilirubin 0.4 mg/dL (0.15-1.2) 10/02/24 08:59 AST 29 U/L (0-40) 10/02/24 08:59 ALT 29 U/L (0-41) 10/02/24 08:59 Alkaline Phosphatase 73 U/L (40-130) 10/02/24 08:59 Troponin T 5th Gen ng/L 274 ng/L (0-15) H* 10/02/24 17:37 Troponin T Baseline 76 ng/L (0-15) H 10/02/24 08:59 Troponin T 120 Minute 116.4 ng/L (0-15) H 10/02/24 10:25 Delta Troponin T 40.4 ABS# (0-10) H* 10/02/24 10:25 Total Protein 7.6 g/dL (6.6-8.7) 10/02/24 08:59 Albumin 4.4 g/dL (3.5-5.2) 10/02/24 08:59 Globulin 3.2 g/dL (1.3-4.6) 10/02/24 08:59 Triglycerides 271 mg/dL (0-150) H 10/02/24 08:59 Cholesterol 255 mg/dL (0-200) H 10/02/24 08:59 LDL Cholesterol, Calc 149 mg/dL (50-129) H 10/02/24 08:59 HDL Cholesterol 52 mg/dL (60-100) L 10/02/24 08:59 LDL/HDL Ratio 2.87 RATIO (0.00-3.22) 10/02/24 08:59 Cholesterol/HDL Ratio 4.90 mg/dL (1.0-5.00) 10/02/24 08:59 TSH 0.85 uIU/mL (0.27-4.20) 10/02/24 08:59 A&P Assessment and plan 1. Elevated troponin: Patient seems to be doing okay at this time. Echocardiogram findings as mentioned above. 2. Elevated blood pressure reading: ndpoint. Currently normotensive. May hold off on any medications at this time. 3. Bradycardia: The bradycardia, could be related to ischemia. Other etiologies cannot be excluded. We will check the TSH TSH is within normal limits. 4. Dyslipidemia: I am go ahead and start the patient on Lipitor 40 mg p.o. now and daily. Will do a lipid profile on the blood in the lab. Plan: For further evaluation of the patient's coronary status, he would benefit from a cardiac catheterization. The risk and benefits were discussed with the patient. The risk of bleeding, hematoma, vascular injury, myocardial infarction, myocardial perforation, malignant cardiac arrhythmias ,CVA, renal failure and other concomitant complications were explained in detail. Patient understood this well and consented to proceed. Based on the angiogram findings, further recommendations will be made Patient also understands that if he requires surgical revascularization, we may have to transfer him to another facility. Patient is agreeable for this. Discussed the plan with Dr. Castillo. Dr. Castillo concurred PDMP PDMP Reviewed: Not Reviewed Attestations Medical Necessity Statement*: Patient may require another midnight stay Coding Level of Care Code 13141 Diagnoses Elevated troponin R79.89 Elevated blood pressure reading R03.0 Bradycardia R00.1 Dyslipidemia E78.5
--- NOTE | 2024-10-03 07:57 | W.PM.OPSUD ---
Surgery/Procedure H&P Update DATE OF PROCEDURE: October 03, 2024 DATE H&P PERFORMED: 10/02/24 H&P UPDATE INFORMATION: I have reviewed H&P completed within last 30 days, I have examined patient prior to procedure and No changes to prior documentation PREOP DIAGNOSIS: ASHD PRIMARY INDICATION FOR PROCEDURE: Non-ST elation myocardial infarction/atherosclerotic heart disease PLANNED PROCEDURE: Operation Date: 10/03/24 09:35 Proposed Procedures p Cardiac Catheterization(Left) - Peggy Messer MD PATIENT REASSESSED PRIOR TO SEDATION, WITH NO CHANGE NOTED: Yes PHYSICAL EXAM: alert, oriented x 3, clear to auscultation bilaterally and regular rate & rhythm AIRWAY EVAL/ANESTHESIA PLAN: normal airway, see other exam findings, ASA II, Monitored Anesthesia, Local Anesthesia, Risks, benefits & alternatives of sedation and/or procedure discussed and Patient agrees to continue as planned
--- NOTE | 2024-10-03 09:15 | PC.NURSE ---
Patient returned from cath s/p lhc via right wrist with TR band in place. No bleeding or hematoma formation observed. Instructed patient site care with restrictions. Patient verbalized complete understanding. Heparin not continued presently per Dr Messer.
--- NOTE | 2024-10-03 09:15 | PM.OP ---
Operative Report Date of procedure: October 03, 2024 Surgeon: Peggy Messer MD Procedure: Patient underwent left heart catheterization with a left and right coronary angiogram and LV angiogram today. He was found to have a high-grade lesion in the mid LAD and proximal segment of the first diagonal artery. He also has moderate to severe diffuse disease in the mid circumflex. LV atrial pressure was around 50%. There is mild diffuse achiness of the anteroapical region. LVEDP of 22 mmHg. I reviewed and discussed the cardiac catheterization data with Dr. Dorman. The percutaneous coronary intervention is going to be complex based on the location of the lesions. Surgical revascularization should be a consideration. Since we do not have any surgical backup, it may be appropriate to have him transferred to a facility where surgical backup is available. Patient tolerated the procedure very well with no complications. He is being transferred back to the telemetry floor After discussing with the patient and his family in detail about the angiogram findings, a final decision will be made
[2024-10-03 11:13] LABS: Partial Thromboplastin Time 65.7 SECONDS (23.9-36.7)
--- NOTE | 2024-10-03 11:40 | P.TS_ITS ---
Transfer Summary Providers Date of Admission: 10/02/24 12:17 Date of Discharge/Transfer: 10/03/24 Attending Provider at Admission: Tejas Castillo Attending Provider at Transfer: Tejas Castillo Transfer Plans: Anticipated date of transfer: 10/03/24 . Diagnoses at Discharge Discharge Diagnosis 1. Elevated troponin: 2. Elevated blood pressure readin. Bradycardia: 4. 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 He checked his blood pressure and it was elevated as high as 200s over 90s. In the emergency room initial blood pressure elevated 176/103. He does not have history of diagnosed hypertension, he had a blood pressure cuff leftover from his father. In ED his heart rates are in the high 40s to low 50s, initial troponin 76 but with positive delta of 216.4 at 2 hours. EKG with suggestion of LVH, T wave inversion in 3. Chest x-ray unremarkable. He denies history of GERD. Reports still ongoing mild unease/discomfort in his chest with Nitropatch on. Blood pressures have started trending down in the ED. Hospital Course Hospital Course Troponin series showing positive delta, he was started on treatment for NSTEMI with aspirin, anticoagulation, due to sinus bradycardia not started on beta- neena. Started on statin. Echocardiogram obtained showed normal ejection fraction with mild hypokinesia of the basal inferior wall segment, mildly increased left atrial size trace MVR, trace TVR, no pericardial effusion, no intracardiac masses. He was assessed by cardiology, underwent coronary angiography with finding of complex high-grade lesion in the proximal segment of diagonal artery and mid LAD, as well as moderate to severe diffuse disease in the mid circumflex. Further consideration given to consideration of high risk PCI, need for surgical revascularization, and so with need of surgical backup arrangements are made for transfer to higher level care facility. He was accepted in awaiting transfer to [facility] to the care of Dr. Wiley to be excepted by hospitalist Dr Stearns. Physical Exam Const: COMMON NORMALS: patient oriented x3 and alert GENERAL APPEARANCE: cooperative ORIENTATION/CONSCIOUSNESS: Yes awake HENMT: COMMON NORMALS: oropharynx normal Neck/C-Spine: COMMON NORMALS: no JVD Resp: COMMON NORMALS: normal respiratory effort and clear to auscultation bilaterally AUSCULTATION: clear to auscultation bilaterally Cardio: COMMON NORMALS: no JVD, regular rhythm, S1 normal heart sound present, S2 normal heart sound present and No murmurs present (Cardio) RHYTHM: regular rhythm HEART SOUNDS: S1 normal heart sound present and S2 normal heart sound present GI: COMMON NORMALS: Normal to inspection, nondistended, normoactive bowel maryann nds present, Soft to palpation and non-tender PALPATION: Yes Soft to palpation Extremity: COMMON NORMALS: no joint enlargement and no pedal edema Neuro: COMMON NORMALS: patient oriented x3 and moves all extremities SENSORIUM/ORIENTATION: Yes alert Skin: COMMON NORMALS: no rashes or lesions noted GENERAL SKIN EXAM: no rashes or lesions noted TS Data Studies Completed and Pending Pending at discharge Category Date Time Status Basic Metabolic Panel AM LABS Lab 10/04/24 04:00 Ordered Basic Metabolic Panel AM LABS Lab 10/05/24 04:00 Ordered Complete Blood Count w/Auto AM LABS Lab 10/04/24 04:00 Ordered Complete Blood Count w/Auto AM LABS Lab 10/05/24 04:00 Ordered Completed Studies During Hospitalization Category Date Time Status [employer] SPECIALIST request for service Routine Exams 10/03/24 07:00 Completed XR chest 1V portable [id number] Stat Exams 10/02/24 08:50 Completed CV. echo complete* [id number] Routine Ultrasound 10/02/24 12:19 Completed Laboratory Last Values WBC 8.42 10^3/uL (3.29-11.43) 10/03/24 01:51 RBC 4.10 10^6/uL (3.85-5.65) 10/03/24 01:51 Hgb 13.40 g/dL (11.27-16.99) 10/03/24 01:51 Hct 38.3 % (37-53) 10/03/24 01:51 MCV 93.4 fl (82-101) 10/03/24 01:51 MCH 32.7 pg (27-33) 10/03/24 01:51 MCHC 35.0 g/dL (30-55) 10/03/24 01:51 RDW 13.0 % (12.1-15.1) 10/03/24 01:51 Plt Count 186 10^3/cmm (157-399) 10/03/24 01:51 MPV 8.9 fL (7.4-10.4) 10/03/24 01:51 Neut % (Auto) 48.6 % 10/03/24 01:51 Lymph % (Auto) 41.2 % 10/03/24 01:51 [place] % (Auto) 7.0 % 10/03/24 01:51 Eos % (Auto) 2.6 % 10/03/24 01:51 Baso % (Auto) 0.4 % 10/03/24 01:51 Neut # (Auto) 4.09 10^3/uL (1.8-7.7) 10/03/24 01:51 Lymph # (Auto) 3.5 10^3/uL (0.8-4.8) 10/03/24 01:51 Sen[place] # (Auto) 0.6 10^3/uL (0.2-0.9) 10/03/24 01:51 Eos # (Auto) 0.2 10^3/uL (0.0-0.8) 10/03/24 01:51 Baso # (Auto) 0.0 10^3/uL (0.0-0.1) 10/03/24 01:51 Nucleated RBC % (auto) 0 % 10/03/24 01:51 Nucleated RBCs # 0.0 /100WBC 10/03/24 01:51 APTT 65.7 SECONDS (23.9-36.7) H 10/03/24 10:48 Sodium 140 mmol/L (136-145) 10/03/24 01:51 Potassium 3.9 mmol/L (3.5-5.1) 10/03/24 01:51 Chloride 106 mmol/L (98-107) 10/03/24 01:51 Carbon Dioxide 24 mmol/L (22-29) 10/03/24 01:51 Anion Gap 13.9 (5-19) 10/03/24 01:51 BUN 20 mg/dL (8-23) 10/03/24 01:51 Creatinine 0.9 mg/dL (0.7-1.2) 10/03/24 01:51 GFR Calculation 83.9 mL/min (90-130) L 10/03/24 01:51 Glucose 95 mg/dL (65-115) 10/03/24 01:51 Calculated Osmolality 292 mOsm/kg (285-295) 10/03/24 01:51 Calcium 8.7 mg/dL (8.5-10.5) 10/03/24 01:51 Total Bilirubin 0.4 mg/dL (0.15-1.2) 10/02/24 08:59 AST 29 U/L (0-40) 10/02/24 08:59 ALT 29 U/L (0-41) 10/02/24 08:59 Alkaline Phosphatase 73 U/L (40-130) 10/02/24 08:59 Troponin T 5th Gen ng/L 274 ng/L (0-15) H* 10/02/24 17:37 Troponin T Baseline 76 ng/L (0-15) H 10/02/24 08:59 Troponin T 120 Minute 116.4 ng/L (0-15) H 10/02/24 10:25 Delta Troponin T 40.4 ABS# (0-10) H* 10/02/24 10:25 Total Protein 7.6 g/dL (6.6-8.7) 10/02/24 08:59 Albumin 4.4 g/dL (3.5-5.2) 10/02/24 08:59 Globulin 3.2 g/dL (1.3-4.6) 10/02/24 08:59 Triglycerides 271 mg/dL (0-150) H 10/02/24 08:59 Cholesterol 255 mg/dL (0-200) H 10/02/24 08:59 LDL Cholesterol, Calc 149 mg/dL (50-129) H 10/02/24 08:59 HDL Cholesterol 52 mg/dL (60-100) L 10/02/24 08:59 LDL/HDL Ratio 2.87 RATIO (0.00-3.22) 10/02/24 08:59 Cholesterol/HDL Ratio 4.90 mg/dL (1.0-5.00) 10/02/24 08:59 TSH 0.85 uIU/mL (0.27-4.20) 10/02/24 08:59 Radiology Impressions Chest X-Ray 10/02/24 08:50 IMPRESSION: 1. Negative chest. Recent Clincial Data Last Vital Signs Temp 97.6 F 10/03/24 09:20 Pulse 54 L 10/03/24 09:20 Resp 14 10/03/24 09:20 BP 118/70 10/03/24 09:20 Pulse Ox 97 10/03/24 09:20 O2 Del Method Room Air 10/03/24 09:20 Vital Signs Temp Pulse Resp BP Pulse Ox O2 Del Method 10/03/24 09:20 97.6 F 54 L 14 118/70 97 Room Air 10/03/24 07:38 97.7 F 49 L 13 121/64 97 Room Air 10/03/24 05:00 46 L 13 106/57 96 10/03/24 04:00 46 L 14 108/53 10/03/24 03:00 44 L 11 L 105/57 93 10/03/24 02:00 58 L 14 95/47 97 10/03/24 01:00 42 L 13 106/61 95 10/03/24 00:00 48 L 11 L 93/59 93 Intake & Output/Weight 10/01/24 10/02/24 10/03/24 10/04/24 06:59 06:59 06:59 06:59 Intake Total 499.934 / 499.934 193.75 / 193.75 Balance 499.934 / 499.934 193.75 / 193.75 Weight 74.525 kg Vitals Last Vital Signs Temp 97.6 F 10/03/24 09:20 Pulse 54 L 10/03/24 09:20 Resp 14 10/03/24 09:20 BP 118/70 10/03/24 09:20 Pulse Ox 97 10/03/24 09:20 O2 Del Method Room Air 10/03/24 09:20 TS Medications Medications Acetaminophen (Acetaminophen 325 Mg Tablet) 650 mg PO Q6H PRN PRN Reason: Mild/Mod Pain Or Temp >/= 101 Aspirin (Aspirin 81 Mg Ec Tablet) 81 mg PO DAILY KATHLEEN Last Admin: 10/03/24 06:50 Dose: Not Given Atorvastatin Calcium (Atorvastatin 40 Mg Tablet) 40 mg PO BEDTIME KATHLEEN Last Admin: 10/02/24 20:52 Dose: 40 mg Heparin Sodium (Porcine) (Heparin 5,000 Unit/Ml Inj 1 Ml) 0 unit IVP PRN PRN; Protocol PRN Reason: Heparin Weight Based Protocol -Subsequent Bolus Heparin Sodium/Sodium Chloride (Heparin Drip) 25,000 unit in 500 mls @ 0 mls/hr IV CONT KATHLEEN; Protocol Last Titration: 10/03/24 08:00 Dose: 0 unit/kg/hr, 0 mls/hr Sodium Chloride (Sodium Chloride 0.9%) 1,000 mls @ 50 mls/hr IV .Q20H [facility] Last Admin: 10/03/24 08:58 Dose: Not Given Sodium Chloride (Sodium Chloride 0.9%) 1,000 mls @ 50 mls/hr IV .Q20H ONE Stop: 10/03/24 16:05 Last Admin: 10/03/24 06:48 Dose: Not Given Sodium Chloride (Sodium Chloride 0.9%) 1,000 mls @ 75 mls/hr IV .[id number] [facility] Last Admin: 10/03/24 10:51 Dose: Not Given Morphine Sulfate (Morphine 4 Mg/Ml Sdv 1 Ml) 2 mg IVP Q4H PRN PRN Reason: SEVERE PAIN Ondansetron HCl (Ondansetron 2 Mg/Ml Sdv 2 Ml) 4 mg IVP Q8H PRN PRN Reason: vomiting, or N/V if npo Discontinued Medications Aspirin (Aspirin 81 Mg Chew Tablet) 324 mg PO ONCE ONE Stop: 10/02/24 08:51 Last Admin: 10/02/24 09:02 Dose: 324 mg Aspirin (Aspirin 81 Mg Chew Tablet) 324 mg PO NOW ONE Stop: 10/03/24 07:01 Last Admin: 10/03/24 08:12 Dose: 324 mg Aspirin (Aspirin 325 Mg Tablet) 325 mg PO ONCE ONE Stop: 10/02/24 20:07 Last Admin: 10/02/24 20:23 Dose: Not Given Clopidogrel Bisulfate (Clopidogrel 300 Mg Tablet) 300 mg PO ONCE ONE Stop: 10/02/24 11:11 Last Admin: 10/02/24 12:42 Dose: 300 mg Diphenhydramine HCl (Diphenhydramine 50 Mg Capsule) 50 mg PO ONCE ONE Stop: 10/03/24 07:01 Last Admin: 10/03/24 08:58 Dose: Not Given Diphenhydramine HCl (Diphenhydramine 50 Mg Capsule) 50 mg PO ONCE ONE Stop: 10/02/24 20:07 Last Admin: 10/02/24 20:23 Dose: Not Given Diphenhydramine HCl (Diphenhydramine 50 Mg/Ml Sdv 1ml) Confirm Administered Dose 50 mg .ROUTE .STK-MED ONE Stop: 10/03/24 08:00 Fentanyl (Fentanyl 50 Mcg/Ml Inj 2ml) Confirm Administered Dose 100 mcg .ROUTE .STK-MED ONE Stop: 10/03/24 08:00 Heparin Sodium (Porcine) (Heparin 5,000 Unit/Ml Inj 1 Ml) 0 unit IVP ONCE ONE; Protocol Stop: 10/02/24 11:08 Last Admin: 10/02/24 12:43 Dose: 3,600 unit Heparin Sodium (Porcine) (Heparin 5,000 Unit/Ml Inj 1 Ml) Confirm Administered Dose 5,000 unit .ROUTE .STK-MED ONE Stop: 10/03/24 07:58 Heparin Sodium (Porcine) (Heparin 5,000 Unit/Ml Inj 1 Ml) Confirm Administered Dose 5,000 unit .ROUTE .STK-MED ONE Stop: 10/03/24 08:00 Lidocaine HCl (Xylocaine) Confirm Administered Dose 20 mls @ as directed .ROUTE .STK-MED ONE Stop: 10/03/24 08:00 Sodium Chloride (Sodium Chloride 0.9%) Confirm Administered Dose 1,000 mls @ as directed .ROUTE .STK-MED ONE Stop: 10/03/24 08:00 Midazolam HCl (Midazolam 1 Mg/Ml Inj 2 Ml) Confirm Administered Dose 2 mg .ROUTE .STK-MED ONE Stop: 10/03/24 08:00 Nitroglycerin (Nitroglycerin 1 Gm/Inch Oint Pkt) 0.5 inch TOPICAL ONCE ONE Stop: 10/02/24 09:41 Last Admin: 10/02/24 09:48 Dose: 0.5 inch Nitroglycerin (Nitroglycerin 5 Mg/Ml Sdv 10 Ml) Confirm Administered Dose 50 mg .ROUTE .STK-MED ONE Stop: 10/03/24 08:00 Verapamil HCl (Verapamil 2.5 Mg/Ml Inj 2ml) Confirm Administered Dose 5 mg .ROUTE .STK-MED ONE Stop: 10/03/24 08:08 Allergies Latex, Natural Rubber Allergy (Verified 10/02/24 08:56) Unknown Home Medications adalimumab 40 mg/0.8 mL subcutaneous syringe kit (Humira) 40 mg SUBCUT Q14D 10/02/24 [History Confirmed 10/02/24] ascorbic acid 30 mg-collagen, hydrolyzed 833.3 mg tablet (Collagen Skin Renewal) 1 tab PO DAILY 10/02/24 [History Confirmed 10/02/24] ibuprofen 200 mg tablet (Advil) 200 mg PO Q6H PRN Fever Or Pain 10/02/24 [History Confirmed 10/02/24] Discharge Plan Discharge Patient Disposition: Home Condition: Stable Prescriptions: No Action ibuprofen [Advil] 200 mg Tablet 200 mg PO Q6H PRN (Reason: Fever Or Pain) Humira 40 mg/0.8 mL Syringe Kit 40 mg SUBCUT Q14D Collagen Skin Renewal 30-833.3 mg Tablet 1 tab PO DAILY Referrals: Za Groves, [employer] [Nurse Practitioner, Cardiology] Patient Instructions: Opioid Safety, Patient Portal & Radha Instructions Transfer Attestations Time Spent in Transfer Care: greater than 30 min Quality Metrics Clinical Quality Measures [ Acute Myocardial Infaction { Clinical Trial Participant: No; Contraindication to aspirin: None; Aspirin prescribed; Contraindication to statin: None; Statin prescribed;}] Coding Level of Care Code 31828 Total time (in minutes) for Discharge: 50 Diagnoses Elevated troponin R79.89 Elevated blood pressure reading R03.0 Bradycardia R00.1 Dyslipidemia E78.5
--- NOTE | 2024-10-03 13:38 | PC.NURSE ---
Heparin on hold presently. s/p c. waiting for transfer to [facility]
--- NOTE | 2024-10-03 13:41 | PC.NURSE ---
Initiated TR band removal at 1030 removing 2-3ml of air every 15-20min until all air removed at this time. No s/s of bleeding or hematoma formation observed. Covered site with 2x2 and coban. Reinforced instruction regarding site care. Patient verbalized understanding.
[2024-10-04] VITALS (7 sets, daily range): BP systolic 143–159; BP diastolic 70–99; PULSE 45–60; RESP 11–18; TEMP 36.4–36.8; O2SAT 97–98
[2024-10-04 04:18] LABS: Hematocrit 39.3 % (37-53); Hemoglobin 13.60 g/dL (11.27-16.99); Mean Corpuscular HGB Conc 34.6 g/dL (30-55); Mean Corpuscular Hemoglobin 32.5 pg (27-33); Mean Corpuscular Volume 94.0 fl (82-101); Nucleated Red Blood Cells % 0 %; Platelet Count 192 10^3/cmm (157-399); Red Blood Count 4.18 10^6/uL (3.85-5.65); White Blood Count 5.77 10^3/uL (3.29-11.43)
[2024-10-04 04:36] LABS: Anion Gap 13.8 (5-19); Blood Urea Nitrogen 15 mg/dL (8-23); Calcium 8.3 mg/dL (8.5-10.5); Carbon Dioxide 25 mmol/L (22-29); Chloride 105 mmol/L (98-107); Creatinine Clr Calc Pharmacy 86.8375; Glucose 88 mg/dL (65-115); Osmolality Calculated 290 mOsm/kg (285-295); Potassium 3.8 mmol/L (3.5-5.1); Sodium 140 mmol/L (136-145)
--- NOTE | 2024-10-04 07:31 | PC.NURSE ---
patient stated to nurse that he would like to leave and have his take him to [facility] when they have a bed available. Nurse explained to patient that if he is discharged his bed will be forfeited. Dr. Castillo notified and asked to come talk to patient.
--- NOTE | 2024-10-04 09:44 | P.PN_ITS ---
Subjective 2 Subjective: Patient had coronary angiogram performed yesterday which showed severe multivessel CAD. Vitals/I&O/Wt Last Vital Signs Temp 98.3 F 10/04/24 04:00 Pulse 58 L 10/04/24 04:00 Resp 17 10/04/24 04:00 BP 149/77 10/04/24 08:00 Pulse Ox 98 10/04/24 04:00 O2 Del Method Room Air 10/04/24 04:00 10/03/24 10/04/24 10/04/24 22:59 06:59 14:59 Intake Total 360 / 793.75 240 / 240 Balance 360 / 793.75 240 / 240 Weight last 48 hrs Weight 162 lb 1.6 oz Weight 164 lb 4.8 oz Physical Exam 2 Narrative: GENERAL: Patient is alert, awake and oriented x3. [] NECK: No jugular vein distension. [] HEENT: No cyanosis. No icterus. No pallor. [] HEART: Regular S1 and S2. No murmur, rub or gallop. [] LUNGS: Clear to auscultate bilaterally. [] CENTRAL NERVOUS SYSTEM: Grossly nonfocal. [] EXTREMITIES: Lower extremities with 1+ edema bilaterally. Data 10/04/24 02:19 10/04/24 02:19 A&P Assessment and plan 1. Non-ST elevation MT (NSTEMI): 2. Elevated blood pressure readin. Bradycardia: 4. Dyslipidemia: Plan: Patient had significant multivessel coronary artery disease involving LAD, diagonal artery extending all the way back to the ostium of the diagonal, left circumflex artery and moderate RCA stenosis. Patient will need heart team discussion as CABG is appropriate given multivessel CAD. Awaiting transfer. Chest pain-free at this time. Thank you for involving us with care of this patient. Will continue to follow. Please call with questions PDMP PDMP Reviewed: Not Reviewed Attestations 2 Medical Necessity Statement*: Care expected to cross 2 midnights. Coding Level of Care Code Acute Code for g Fwd Diagnoses Non-ST elevation MT (NSTEMI) I21.4 Elevated blood pressure reading R03.0 Bradycardia R00.1 Dyslipidemia E78.5
--- NOTE | 2024-10-04 11:14 | PM.PN ---
Subjective Subjective: Patient has multivessel disease on angiogram and is complex PCI that needs surgical backup. He has been accepted in transfer to [facility] in [place] under the care of Dr. Wiley and Dr. Stearns. Patient denies chest pain. He states that he has some mild chest tightness that he is more aware of now that he knows he has heart disease. Typically he has no shortness of breath but minimal coughing in the morning with allergies. 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 He has not smoked in 10 years and this calculated to about 5 cigarettes a day for 20 years Medications: Medication Review Details: Current Medications Acetaminophen (Acetaminophen 325 Mg Tablet) 650 mg PO Q6H PRN PRN Reason: Mild/Mod Pain Or Temp >/= 101 Aspirin (Aspirin 81 Mg Ec Tablet) 81 mg PO DAILY KATHLEEN Last Admin: 10/03/24 06:50 Dose: Not Given Atorvastatin Calcium (Atorvastatin 40 Mg Tablet) 40 mg PO BEDTIME KATHLEEN Last Admin: 10/02/24 20:52 Dose: 40 mg Heparin Sodium (Porcine) (Heparin 5,000 Unit/Ml Inj 1 Ml) 0 unit IVP PRN PRN; Protocol PRN Reason: Heparin Weight Based Protocol -Subsequent Bolus Heparin Sodium/Sodium Chloride (Heparin Drip) 25,000 unit in 500 mls @ 0 mls/hr IV CONT KATHLEEN; Protocol Last Titration: 10/03/24 03:05 Dose: 10.33 unit/kg/hr, 15 mls/hr Sodium Chloride (Sodium Chloride 0.9%) 1,000 mls @ 50 mls/hr IV .Q20H KATHLEEN Sodium Chloride (Sodium Chloride 0.9%) 1,000 mls @ 50 mls/hr IV .Q20H ONE Stop: 10/03/24 16:05 Last Admin: 10/03/24 06:48 Dose: Not Given Morphine Sulfate (Morphine 4 Mg/Ml Sdv 1 Ml) 2 mg IVP Q4H PRN PRN Reason: SEVERE PAIN Ondansetron HCl (Ondansetron 2 Mg/Ml Sdv 2 Ml) 4 mg IVP Q8H PRN PRN Reason: vomiting, or N/V if npo Vitals/I&O/Wt Last Vital Signs Temp 98.3 F 10/04/24 04:00 Pulse 58 L 10/04/24 04:00 Resp 17 10/04/24 04:00 BP 149/77 10/04/24 08:00 Pulse Ox 98 10/04/24 04:00 O2 Del Method Room Air 10/04/24 04:00 10/03/24 10/04/24 10/04/24 22:59 06:59 14:59 Intake Total 360 / 793.75 240 / 240 Balance 360 / 793.75 240 / 240 Weight last 48 hrs Weight 73.527 kg Weight 74.525 kg Physical Exam Narrative: General well-developed well-nourished male in no acute cardiopulmonary stress CV regular rate and rhythm Lungs clear to auscultation bilaterally Abdomen positive bowel sounds soft nontender Calves no tenderness cords pretrip edema Data 10/04/24 02:19 10/04/24 02:19 A&P Assessment and plan 1. Non-ST elevation PR (NSTEMI): NSTEMI reached troponin to 274 from presentation of 76. Echo was relatively preserved normal Continue heparin drip 2. Elevated blood pressure reading: Blood pressure elevated at home 200s over 90s, blood pressure emergency department 176/103. Blood pressure now 149/77 heart rate 58 he is on a Nitropaste. Add losartan 25 mg daily first dose now 3. Bradycardia: Heart rates in the high 40s to low 50s. Does not appear to be symptomatic at this time at least. Not a candidate for beta-neena. Will treat with losartan for blood pressure 4. Dyslipidemia: Started on atorvastatin 40 mg nightly Plan: Psoriasis with psoriatic arthritis: On Humira. Discussed with him psoriasis increasing risk of cardiovascular disease. He occasionally takes ibuprofen, discussed risk of gastritis, PUD, as well as elevated blood pressure and risk of cardiovascular events increased by NSAIDs. Discussed safe alternatives. PDMP PDMP Reviewed: Not Reviewed Attestations Medical Necessity Statement*: Patient will require hospitalization for complex PCI or bypass surgery and is awaiting bed at [facility] Coding Level of Care Code 12988 Diagnoses Non-ST elevation PR (NSTEMI) I21.4 Elevated blood pressure reading R03.0 Bradycardia R00.1 Dyslipidemia E78.5 Time Spent (min) 25
--- NOTE | 2024-10-04 12:28 | PC.CHAP ---
Pastoral Care Encounter/Spiritual Assessment Type of Contact [] Declined dry room attendant visit [] Patient/Family/Request visit [] Outpatient visit [] Follow-up visit [] Physician referral [] Code/Alert [x] Routine visit [] Staff referral [] Actively dying [] Patient sleeping [] Family support [] [] Out of room [] Palliative care [] [] Receiving care in room [] Pre-surgical visit [] Trauma [] Long length of stay [] ICU visit [] Other: Relational/Emotional Strength [] Patient feels connected with others/family/visitors/staff [] Distress [] Loneliness/isolation [] Abandonment Spirituality of Patient [x] Person of Carline [] Attends Hoahaoism of their Carline [] Believes in Prayer [] Reads Bible or Yazidism materials [] There are Spiritual issues to be addressed Pressure Tester Interventions [x] Prayer [] Active listening [] Non-anxious presence [] Spiritual/emotional support [] Crisis/trauma care [] Spiritual counseling [] Bereavement support [] Provided bereavement packet [] Provided Bible/devotional materials [] Provided toy/stuffed animal, coloring book to patient or family member [] Provided Communion [] Anointing/[place] [] Salvation [] Completed spiritual assessment [] Other: Impact on Illness or Injury [] Angry [] Fearful [] Anxious [] Often cries [] Exhaustion [] Unable to work [] Unable to attend church [] Unable to walk/stand [] Unable to read [] Unable to drive [] Unable to eat/drink [] Unable to sleep [] Unable to be with family [] Patient intubated [] Other: Summary Time spent with patient
[2024-10-04] MEDS: heparin drip 25,000 UNIT/500 ML PREMIX 15 UNIT IV (19:03)
== END 2024-10-04 19:00 | disposition other institution (70) ==
LOC: ER 09:15 → CSU 12:02
PROVIDERS: Internal Medicine Cardiovascular Disease; Admitting Provider Internal Medicine; Emergency Provider Family Medicine; Visit Provider Internal Medicine
DX: I21.4 Non-ST elevation (NSTEMI) myocardial infarction (principal); R00.1 Bradycardia, unspecified; R03.0 Elevated blood-pressure reading, without diagnosis of hypertension; R79.89 Other specified abnormal findings of blood chemistry; E78.5 Hyperlipidemia, unspecified; Z79.82 Long term (current) use of aspirin; Z82.49 Family history of ischemic heart disease and other diseases of the circulatory system; Z85.46 Personal history of malignant neoplasm of prostate
CPT/HCPCS: 36415; 71045; 80048; 80053; 80061; 84443; 84484; 85025; 85730; 93005; 93306; 93458; 96374; 96376; 99152; 99153; 99285; C1769; C1887; C1894; G0378; J1200; J1644; J2250; J3010; J3490; J7030; J9999; Q9967